=== PATIENT | male | born 1970 | race Caucasian/White ===

== ENCOUNTER 2022-08-28 21:29 | Outpatient (REF) | payer OTHER, SELFPAY ==
[2022-08-28 15:10] LABS: HGB 15.6 g/dL (13.5-17.5); MCHC 33.9 % (32.0-36.0); MCV 92 fL (80-95); Platelet Count 194 10^3/uL (130-400); RBC 5.03 10^6/uL (4.36-5.78); RDW 12.3 % (11.8-14.1); RDW-SD 40.6 fL; WBC 6.26 10^3/uL (4.4-10.8)
[2022-08-28 16:20] LABS: ALT 57 U/L (16-63); AST 27 U/L (15-37); Albumin 4.4 g/dL (3.4-5.0); Alkaline Phosphatase 63 U/L (46-116); Anion Gap 6.5 mmol/L (3-11); BUN 21 mg/dL (7-18); Bilirubin, Total 0.5 mg/dL (0.2-1.0); CO2 31.5 mmol/L (21.0-32.0); CREATININE 0.8 mg/dL (0.70-1.30); Calcium 9.3 mg/dL (8.5-10.1); Chloride 104 mmol/L (98-107); Estimated GFR 105.82 (mL/min/1.73m2); Glucose 97 mg/dL (74-106); Potassium 4.8 mmol/L (3.5-5.1); Sodium 142 mmol/L (136-145); TSH (W/Ref FT4) 0.78 uIU/mL (0.36-3.74); Total Protein 7.3 g/dL (6.4-8.2)
[2022-08-29 09:37] LABS: Lyme Ab w Rflx to Lyme Confirm Negative (Negative)
[2022-08-30 21:13] LABS: Anaplasma phagocytophilum Negative (Negative); B. miyamotoi PCR Negative (Negative); Babesia divergens/MO-1 Negative (Negative); Babesia duncani Negative (Negative); Babesia microti Negative (Negative); Ehrlichia chaffeensis Negative (Negative); Ehrlichia ewingii/canis Negative (Negative); Ehrlichia muris eauclairensis Negative (Negative)
== END 2022-08-28 21:30 | disposition home or self-care (01) ==
LOC: NCHCN 21:29
PROVIDERS: PCP Family Medicine; Visit Provider Family Medicine
DX: R03.0 Elevated blood-pressure reading, without diagnosis of hypertension (principal); M62.50 Muscle wasting and atrophy, not elsewhere classified, unspecified site
CPT/HCPCS: 80053; 85027; 87798; 84443; 86618

== ENCOUNTER 2022-10-29 16:16 | Outpatient (REF) | payer OTHER, SELFPAY ==
[2022-10-29 15:10] LABS: Hemoglobin A1C 5.3 % (<5.7)
== END 2022-10-29 16:17 | disposition home or self-care (01) ==
LOC: NCHCN 16:16
PROVIDERS: Psychiatry & Neurology Neurology; PCP Family Medicine; Visit Provider Family Medicine
DX: R73.9 Hyperglycemia, unspecified (principal)
CPT/HCPCS: 83036

== ENCOUNTER 2022-11-26 02:51 | Outpatient (CLI) | payer OTHER, SELFPAY ==
--- NOTE | 2022-11-26 06:45 | DI.MRI_ITS ---
Exam(s) MR UPPER JOINT LT WO EXAM: MR UPPER JOINT LT WO CLINICAL HISTORY: Decreased range of motion shoulder,bilat joint stiffness,lt bicep atrophy,. TECHNIQUE: Multiplanar multisequence MRI was performed. COMPARISON: None. FINDINGS: BONES: There is no fracture or contusion pattern. Os acromiale. JOINTS:The acromioclavicular joint shows mild degenerative changes. The glenohumeral joint shows a s mall amount of fluid. TENDONS: Supraspinatus: Unremarkable. Infraspinatus: Unremarkable. Subscapularis: Unremarkable. Teres Minor: Unremarkable. Biceps and [place]: Unremarkable. MUSCLES: Severe atrophy teres minor and major muscles. Severe atrophy anterior deltoid and pectorali s major muscles. Severe atrophy of the trapezius. Mild atrophy infraspinatus muscle. GLENOID LABRUM: Unremarkable on this noncontrast examination. SOFT TISSUES: Unremarkable. OTHER: Subacromial and subdeltoid bursae no significant fluid.. IMPRESSION: Severe muscular atrophy of the teres minor, teres major anterior deltoid and pectoralis major as well as trapezius muscle. DATA REPOSITORY:
--- NOTE | 2022-11-26 06:45 | DI.MRI_ITS ---
Exam(s) MR UPPER JOINT RT WO EXAM: MR UPPER JOINT RT WO CLINICAL HISTORY: R shoulder weakness,decreased range of motion,bilat joint stiffness. TECHNIQUE: Multiplanar multisequence MRI was performed. COMPARISON: None. FINDINGS: BONES: There is no fracture or contusion pattern. JOINTS:The acromioclavicular joint shows mild degenerative changes. The glenohumeral joint is normal . TENDONS: Supraspinatus: Unremarkable. Infraspinatus: Unremarkable. Subscapularis: Unremarkable. Teres Minor: Unremarkable. Biceps and [place]: Unremarkable. MUSCLES: Severe atrophy the infraspinatus, teres minor, deltoid and teres major muscles. GLENOID LABRUM: Unremarkable on this noncontrast examination. SOFT TISSUES: Unremarkable. OTHER: Subacromial and subdeltoid bursae show no significant fluid.. 8 millimeters cyst in supra scapular notch.. IMPRESSION: Smear muscle atrophy of the infraspinatus, teres major and minor and deltoid muscles. Small cyst in suprascapular notch. DATA REPOSITORY:
== END 2022-11-26 03:11 ==
PROVIDERS: PCP Family Medicine; Visit Provider Psychiatry & Neurology Neurology
DX: M25.511 Pain in right shoulder (principal); M25.512 Pain in left shoulder; M62.522 Muscle wasting and atrophy, not elsewhere classified, left upper arm; M25.611 Stiffness of right shoulder, not elsewhere classified; M25.612 Stiffness of left shoulder, not elsewhere classified; M62.521 Muscle wasting and atrophy, not elsewhere classified, right upper arm
CPT/HCPCS: 73221

== ENCOUNTER 2022-11-27 01:03 | Outpatient (CLI) | payer OTHER, SELFPAY ==
[2022-11-27] MEDS: Normal Saline Flush 10 ML SYR IVP (09:08)
[2022-11-27] MEDS: Gadoterate meglumine 20 ML VIAL IVP (09:08)
--- NOTE | 2022-11-27 09:45 | DI.MRI_ITS ---
Exam(s) MR CHEST WO/W EXAM: MR CHEST WO/W CLINICAL HISTORY: ? lt brachial plexus,atrophy muscle lt upper arm TECHNIQUE: Multiplanar multisequence MRI of the Chest was performed with brachial plexus protocol. Pre and post contrast infused. Contrast injected was 17 mL Dotarem.. CONTRAST MATERIAL: IV Contrast: 17 ML of Dotarem contrast administered. COMPARISON: CR CHEST 2 VIEWS PA,LAT from 02/14/2011 MR MR CERVICAL SPINE WO from 11/27/2022 FINDINGS: NERVE ROOTS AND TRUNKS: There are no obvious intrinsic nor extrinsic masses related to the C5-T1 roots/ trunks/ divisions. Th ere is no abnormal enhancement. SOFT TISSUES: No significant findings OSSEOUS: Mild degenerative changes noted in the left glenohumeral joint. Mild fluid noted in the left shoulder biceps tendon sheath. No bone edema evident CERVICAL: See separate cervical spine MRI report IMPRESSION: No significant findings related to the brachial left plexus. See separate report for MRI of cervical spine. DATA REPOSITORY:
--- NOTE | 2022-11-27 21:28 | DI.VRAD_ITS ---
PROCEDURE INFORMATION: Exam: MR Chest Without and With Contrast; Brachial Plexus Exam date and time: 11/27/2022 8:29 AM Age: 51 years old Clinical indication: Other: Atrophy of lt upper arm TECHNIQUE: Imaging protocol: MR chest without and with intravenous contrast. Exam focused on the brachial plexus. Total images: 656 Contrast material: DOTAREM; Contrast volume: 17 ml; Contrast route: INTRAVENOUS (IV); COMPARISON: MR CERVICAL SPINE WO 11/27/2022 8:07 AM FINDINGS: Nerves: Unremarkable visualized nerves and brachial plexus. No evidence of surrounding edema, mass or abnormal enhancement. Soft tissues: Mild posterior subcutaneous edema. No abnormal enhancement or edema within the visualized musculature. Bones/joints: Loss of the normal cervical lordosis. Mild cervical levoscoliosis. Mild disc bulging C3-C4, C4-C5 and C5-C6 mildly narrowing the anterior thecal sac without gross impingement. Small left shoulder effusion. No bony edema. Paranasal sinuses: Minimal mucosal thickening right maxillary sinus. IMPRESSION: No significant finding related to the brachial plexus. Dictated and Authenticated by: William Saldana MD. Ordering:DIMITRIOS Sarkar MD
== END 2022-11-27 01:23 ==
PROVIDERS: PCP Family Medicine; Visit Provider Psychiatry & Neurology Neurology
DX: M25.611 Stiffness of right shoulder, not elsewhere classified (principal); M25.612 Stiffness of left shoulder, not elsewhere classified; M62.522 Muscle wasting and atrophy, not elsewhere classified, left upper arm
CPT/HCPCS: 71552

== ENCOUNTER 2022-11-27 08:38 | Outpatient (CLI) | payer OTHER, SELFPAY ==
--- NOTE | 2022-11-27 | DI.MRI_ITS ---
Exam(s) MR CERVICAL SPINE WO EXAM: MR CERVICAL SPINE WO CLINICAL HISTORY: ACUTE CERVICAL RADICULOPATHY, M54.12 TECHNIQUE: Multiplanar multisequence MRI of the cervical spine was performed without intravenous con trast. COMPARISON: There are no plain films available at the time of this MRI interpretation. FINDINGS: CERVICOMEDULLARY JUNCTION: Intact with no evidence of cerebellar tonsillar ectopia. No obvious abnor mality of the odontoid process. No evidence of Chiari 1 malformation. CERVICAL SPINAL CORD: There is no abnormal signal in the cervical spinal cord and no evidence of foca l cord atrophy nor focal cord swelling. OSSEOUS:There are no cervical fractures evident. No significant osseous lesions in the cervical vert ebrae. Straightening of the cervical curvature is noted. INDIVIDUAL LEVELS: C2-3: No disc herniation nor central canal stenosis. Minimal facet degenerative changes. No foramin al stenosis. C3-4: This this level exhibits significant disc height loss. Posteriorly there is broad annular bulg ing without a dominant focal disc herniation. Broad annular bulging flattens the thecal sac. No abn ormal signal in the cord at this level. Mild central canal stenosis.Minimal degenerative change in t he left facet. No significant foraminal stenosis on the left side. On the right side there is also minimal facet degenerative change but there are right-sided Luschka joint osteophytes resulting in mi ld-moderate foraminal stenosis on the right side at this level. There are also Modic type 2 sub endp late fatty marrow changes on the right side of this disc space. C4-5: This level exhibits normal disc height. No disc herniation or central canal stenosis evident a t this level.No degenerative changes in the facet joints at this level. No Luschka joint osteophytes . No foraminal stenosis on either side at this level. C5-6: Relatively preserved disc height. There is a posterolateral right small disc herniation. This extends posteriorly 2 millimeters and is approximately 7 millimeters wide. Indents the thecal sac o n the right side at this level. The disc herniation does not continue into the exiting right neural foramen but there is mild right-sided foraminal stenosis. Mild facet joint degenerative changes. Ti ny right-sided Luschka joint osteophyte noted. On the left side at this level there is no Luschka justyn int osteophyte evident.. No foraminal stenosis on the left side. No facet arthropathy on the left s catrachita. C6-7: Mild disc space narrowing. Anterior osteophytes. Posteriorly there is mild symmetrical annula r bulging without a disc herniation evident and central canal dimensions are lower normal. There is mild bilateral foraminal stenosis at this level. Mild degenerative changes facet. C7-T1: No disc herniation nor central canal stenosis. No facet arthropathy.No foraminal stenosis. IMPRESSION: 1. There is mild central spinal canal stenosis at C3-4 and see 5-6 levels. 2. There is a small posterolateral right disc protrusion at C5-6 level. 3. Minimal facet joint degenerative changes. There is right-sided Luschka joint osteophytes at C3-4 level resulting in an element of right-sided foraminal stenosis at this level. 4. There is no abnormal signal in the cervical spinal cord. Also no evidence of focal cord swelling nor focal cord atrophy. No evidence of cerebellar tonsillar ectopia. DATA REPOSITORY:
--- OUTSIDE RECORDS SUMMARY | 2022-11-27 08:40 | XMS_ITS | Continuity of Care Document ---
:1970 Author Organization [facility] Address [address] [place] [address] Care Team Providers Name Role Phone MARILYN JUAN Primary Care Physician Encounter [facility] NBR [id number] Date(s): 11/14/22 - 11/14/22 [facility] [address] [place], [place] [address] Encounter Diagnosis Shoulder pain (Discharge Diagnosis) - 11/14/22 Discharge Disposition: Home or Self Care Attending Physician: Beka Randolph MD Allergies, Adverse Reactions, Alerts No Known Allergies Assessment and Plan Future Scheduled TestsRadiologyMRI Spine Cervical w/o Contrast 11/14/22 Functional Status 11/14/22 Other exposure to Infectious Disease None Problem List No Known Problems Vital Signs Most recent to oldest [Reference Range]: 1 Peripheral Pulse Rate [60-100 bpm] 64 bpm (11/14/22 8:10 AM) Blood Pressure [90-140/60-90 mmHg] 150/92 mmHg *HI* (11/14/22 8:10 AM) Weight 81.65 kg (11/14/22 8:10 AM) Weight Measured (lbs) 180.007 lb (11/14/22 8:10 AM) Height 170.18 cm (11/14/22 8:10 AM) Height/Length Measured (inches) 67 inch (11/14/22 8:10 AM) BSA Measured 1.96 m2 (11/14/22 8:10 AM) Body Mass Index 28.19 kg/m2 (11/14/22 8:10 AM) Social History Social History Type Response Tobacco Never tobacco user Tobacco U se:. Sex Male Physician Outpatient Note Beka Randolph MD: PERFORM Event Display: Office Clinic Note Physician Authored Date: [id number] DOTTIE MCGRATH :1970 Age:51 years Sex:Male Visit Date:11/14/2022 Primary Care Physician: MARILYN JUAN Chief Complaint BILATERAL ARM PAIN History of Present Illness New patient presents to me today for bilateral shoulder stiffness with some wasting in the upper extremities. ??Has history of??seeing a neurologist for this and is currently??continuing work-up with??MRIs upcoming.?? History of injury??seems neurologic in origin. Review of Systems Constitutional:?No??fevers,?No??chills,?No??sweats Eye:?No??recent visual problems ENT:?No??ear pain,?No??nasal congestion,?No??sore throat Respiratory:?No??shortness of breath,?No??cough Cardiovascular:?No??Chest pain,?No??palpitations,?No??syncope Gastrointestinal:?Nonausea,?No??vomiting,?No??diarrhea Genitourinary:?No??hematuria Juan/Lymph:?No??bruising tendency,?No??swollen lymph glands Endocrine:?No??excessive thirst,??No??excessive hunger Musculoskeletal:??No??back pain,??No??neck pain,??No??joint pain,??No??muscle pain,??Positive for??decreased range of motion Integumentary:?No??rash,?No??pruritus,?No??abrasions Neurologic: Alert & oriented X 4 Psychiatric:?No??anxiety,?No??depression Physical Exam Vitals & Measurements HR:??64??(Peripheral)?? BP:??150/92?? SpO2:??96%?? HT:??170.18??cm?? WT:??81.65??kg?? BMI:??28.19?? BSA:??1.96?? Well-nourished well-developed acute distress alert and oriented appearing stated age. ??Shoulder range of motion passively is full actively??difficult going overhead with some??wasting in the trapezius muscle on the left side as well as around the rotator cuff bilaterally.?? Does have some evidence of scapular winging and wasting of the biceps region as well.?? Normal elbow wrist hand range of motion normal capillary refill distally. ??No??neurologic complaints distally of numbness.?? Open wounds signs of erythema or infection. Assessment/Plan Shoulder pain??M25.519 Orders: MRI Spine Cervical w/o Contrast, 11/14/22, Routine, Reason: CERVICAL REDICULOPOTHY, No, No, PLEASE SEND TO [facility], Transport Mode: Ambulatory, Acute cervical radiculopathy Bilateral upper extremity wasting likely dealing with neurologic origin. ??States he had an EMG butwe do not have the results of that. ??This may be something related to??upper C-spine pathology could even be multiple sclerosis.?? At this time would recommend a C-spine MRI to??evaluate??spinal cord in that region??once that is done likely will be referring back to neurology for final??diagnosis andwork-up. Future Orders MRI Spine Cervical w/o Contrast, 11/14/22, Routine, Reason: CERVICAL REDICULOPOTHY, No, No, PLEASE SEND TO [facility], Transport Mode: Ambulatory, Acute cervical radiculopathy Problem List/Past Medical History Ongoing No chronic problems Historical No qualifying data Medications No active medications Allergies No Known Allergies Social History Alcohol Current, Beer- Comments: 3-4 PER DAY Electronic Cigarette/Vaping Electronic Cigarette Use: Never. 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 Tobacco Never tobacco user Tobacco Use:. Family History Dementia: Mother. Heart disease: Father. Electronically Signed on 11/14/22 09:24 AM Beka Randolph MD Patient Care team information PersonnelName: MARILYN JUAN Address: Address: [address] [address]
--- OUTSIDE RECORDS SUMMARY | 2022-11-27 08:40 | XMS_ITS | Continuity of Care Document ---
:1970 Author Organization [facility] Address [address] [place] [address] Care Team Providers Name Role Phone MARILYN JUAN Primary Care Physician Encounter [facility] NBR [id number] Date(s): 10/28/22 - 10/28/22 [facility]ulatory [facility] [address] [place] [address]- [place] Social History Social History Type Response Sex Male Patient Care team information PersonnelName: MARILYN JUAN Address: Address: [facility] [address] [place], [place] [address] [[email or web address]]
== END 2022-11-27 08:58 ==
PROVIDERS: PCP Family Medicine; Visit Provider Orthopaedic Surgery
DX: M48.02 Spinal stenosis, cervical region (principal); M50.222 Other cervical disc displacement at C5-C6 level; M47.812 Spondylosis without myelopathy or radiculopathy, cervical region
CPT/HCPCS: 72141

== ENCOUNTER 2023-08-13 08:12 | Outpatient (REF) | payer OTHER, SELFPAY ==
[2023-08-13 15:37] LABS: Abs Immature Grans 0.02 10^3/uL (0.0-0.06); Absolute Basophil Count 0.04 10^3/uL (0.0-0.2); Absolute Eosinophil Count 0.19 10^3/uL (0.0-0.7); Absolute Lymphocyte Count 1.13 10^3/uL (1.2-3.4); Absolute Neutrophil Count 4.38 10^3/uL (1.2-6.7); Basophils % 0.6; Eosinophils % 2.9; HCT 48.6 % (40.0-50.0); HGB 16.4 g/dL (13.5-17.5); Immature Grans % 0.3; Lymphocytes % 17.5; MCH 29.9 pg (27.0-33.0); MCHC 33.7 % (32.0-36.0); MCV 89 fL (80-95); MPV 9.7 fL (8.0-11.0); Monocytes % 10.8; Neutrophils % 67.9; Platelet Count 205 10^3/uL (130-400); RBC 5.48 10^6/uL (4.36-5.78); RDW 11.9 % (11.8-14.1); WBC 6.46 10^3/uL (4.4-10.8)
[2023-08-13 16:30] LABS: ALT 64 U/L (16-63); AST 33 U/L (15-37); Albumin 4.2 g/dL (3.4-5.0); Alkaline Phosphatase 67 U/L (46-116); Anion Gap 12.1 mmol/L (3-11); BUN 25 mg/dL (7-18); Bilirubin, Total 0.6 mg/dL (0.2-1.0); CO2 23.9 mmol/L (21.0-32.0); CREATININE 0.7 mg/dL (0.70-1.30); Calculated LDL 183 mg/dL (<100); Chloride 101 mmol/L (98-107); Cholesterol 254 mg/dL (<200); Glucose 92 mg/dL (74-106); HDL Cholesterol 42 mg/dL (40-60); Potassium 4.3 mmol/L (3.5-5.1); Sodium 137 mmol/L (136-145); Total Protein 7.3 g/dL (6.4-8.2); Triglyceride 147 mg/dL (<150)
[2023-08-13 17:00] LABS: Creatine Kinase 524 U/L (39-308)
== END 2023-08-13 08:13 | disposition home or self-care (01) ==
LOC: NCHCN 08:12
PROVIDERS: PCP Family Medicine; Visit Provider Family Medicine
DX: M62.50 Muscle wasting and atrophy, not elsewhere classified, unspecified site (principal); M62.81 Muscle weakness (generalized); R79.89 Other specified abnormal findings of blood chemistry
CPT/HCPCS: 80053; 80061; 82550; 85025

== ENCOUNTER 2023-09-10 08:57 | Day surgery (SDC) | payer OTHER, SELFPAY ==
--- NOTE | 2023-09-09 20:41 | W.PM.DSUDISC ---
Date of service: 09/10/23 Time of Service: 11:12 Discharge Plan Disposition Patient Disposition: Home Condition: Good Discharge Details Reason For Visit: screening colonoscopy Attending Provider: Dawson Horvath Primary Care Provider: Que Sun Home Meds and New Rx's Prescriptions: No Action No Known Home Meds bisacodyl [Dulcolax (bisacodyl)] 5 mg tablet,delayed release (DR/EC) 5 mg PO ONCE Qty: 4 0RF Rx Instructions: Take per colonoscopy instructions provided by ordering providers office polyethylene glycol 3350 17 gram/dose powder 17 g PO ONCE Qty: 238 0RF Rx Instructions: Take per colonoscopy instructions provided by ordering providers office Discharge Instructions Additional Instructions: Omar, we were able to complete your colonoscopy today without any difficulty. The quality of your prep was excellent. I did not see any signs of tumors or polyps anywhere in your large intestine. Incidentally, you do have just a few diverticula. These are small weak spots in the colon wall that typically accumulate with age. Based on the very few number here, I suspect that there would not be any problems for you. I did attach some information here regarding diverticula, diverticulosis, and general management of it. If you have any questions at all, please do not hesitate to contact me at any point. Otherwise, I recommend another colonoscopy in 10 years. 1. If tolerated, consume a soft, low fiber diet for 1-2 days. 2[address] Do not drive, drink alcohol, operate machinery, make critical decisions, or do activities that require coordination or balance for 24 hours. 3. Because air was put into your colon during the procedure, expelling air from your rectum (passing gas or farting) is normal. 4. You may not have a bowel movement for 1-3 days because of the colonoscopy prep. This is normal. 5. Go directly to the emergency room if you notice any of the following: Develop chills (warm to touch), or if you have a thermometer and your temperature is above 101 Difficulty breathing or difficultly swallowing Persistent vomiting Severe abdominal pain, other than gas cramps Severe chest pain Black, tarry stools Any bleeding ? exceeding one tablespoon 6. Call your physician if the site where your intravenous was started becomes red, swollen, painful, and warm to touch. 7. Your physician has reviewed your pre-procedure medications. Please continue to take those medications as previously ordered. You will be given specific information/education regarding any changes to your medications before leaving. Activity:: Activity as Tolerated Diet:: As Tolerated Discharge Orders Discharge Orders: Discharge Order (Routine); Ordered 09/09/23 Ordered By: Dawson Horvath DS: Diagnosis Discharge Diagnosis (1) Encounter for screening colonoscopy: Status: Acute Asessment and Plan: Negative screening colonoscopy
--- NOTE | 2023-09-09 20:42 | W.COLOREPORT ---
Date of service: 09/10/23 Time of Service: 11:13 Colonoscopy Report Date of procedure: 09/10/23 Pre-op diagnosis general: screening colonoscopy Post-op diagnosis procedure note: other (Negative screening colonoscopy) Procedure: colonoscopy Surgeon: Dawson Horvath Anesthesia Type: General:No Airway Estimated blood loss (mL): 0 Pathology: none sent Complications: None Disposition: same day Indications: Isai is a 52 year old man who needs a screening colonoscopy Prep: Miralax/Dulcolax Procedure Start Time: 10:45 Procedure End Time: 11:02 Retraction Time: 12 Findings: Very rare diverticulosis Procedure Description: After the induction of monitored anesthetic care, and with the patient in left lateral decubitus position, I began by performing an external anorectal exam.? Perineum and skin were normal, as was the anal verge.? There is a perianal skin tag consistent with fibrosed external hemorrhoid.? Next, I performed a digital rectal exam.? I did not appreciate any abnormal findings.? Next, I advanced a colonoscope into the rectal vault.? I performed retroflexion.? This appeared normal.? Using insufflation, I then advanced the colonoscope beyond the rectal folds and into the sigmoid colon before advancing towards the cecum.? The scope was noted to be in the cecum by identification of the ileocecal valve and appendiceal orifice.? I then began withdrawing the colonoscope using repeated irrigation as necessary for full evaluation of the colonic mucosa. There were just a few rare scattered diverticuli. Jeddo prep score was 3, 3, 3 from left to right. once the scope was withdrawn to the level of the rectum, great care was taken to examine portions of the rectal folds.? Finally, the scope was withdrawn and the patient was brought to the same-day surgery recovery unit as the anesthetic wore off. ?The findings and instructions were shared with the patient prior to discharge.
[2023-09-10 09:10] VITALS: BP 159/99; PULSE 68; RESP 16; TEMP 36.9; O2SAT 98
[2023-09-10] MEDS: Lactated Ringers 1,000 ML 80 ML IV (09:22)
--- NOTE | 2023-09-10 10:23 | W.ANESPRE ---
General Info Date of Service Date Performed: 09/10/23 Height: 5 ft 7 in Weight: 82.1 kg Body Mass Index (BMI): 28.3 Surgical Procedure: Operation Date: 09/10/23 10:20 Proposed Procedure Side Surgeon p Colonoscopy Dawson Horvath MD Meds Allergies and Home Medications Allergies Allergy/AdvReac Type Severity Reaction Status Date / Time No Known Allergies Allergy Verified 09/10/23 09:15 Home Medication Medication Instructions Recorded Unknown [No Known Home Meds] 10/27/22 bisacodyl 5 mg tablet,delayed 5 mg PO ONCE #4 tabs 09/03/23 release (Dulcolax (bisacodyl)) polyethylene glycol 3350 17 17 g PO ONCE #238 grams 09/03/23 gram/dose oral powder Current Visit Medications: Current Medications Generic Name Dose Route Start Last Admin Trade Name Freq PRN Reason Stop Dose Admin Hyoscyamine Sulfate 0.125 mg 09/09/23 20:43 Hyoscyamine 0.125 Mg Sl/Oral/Chew SL 10/09/23 20:42 DIRECTED PRN Ringer's Solution 1,000 mls @ 80 mls/hr 09/10/23 06:00 09/10/23 09:22 IV 10/09/23 23:59 80 mls/hr INFUSION KEYA Administration IV Miscellaneous Supplies 1 each 09/10/23 06:00 Iv Access IV 10/09/23 23:59 DIRECTED KEYA Ondansetron HCl 4 mg 09/09/23 20:43 Ondansetron 4 Mg/2 Ml Vial IVP 10/09/23 20:42 Q4H PRN PRN Nausea / Vomiting Sodium Chloride 0 ml 09/10/23 06:00 Normal Saline Flush 10 Ml Syr IV 10/09/23 23:59 PRN PRN Sodium Chloride 0 ml 09/10/23 06:00 Normal Saline 10 Ml Vial IJ 10/09/23 23:59 DIRECTED PRN Sterile Water 0 ml 09/10/23 06:00 Water,Injection,Sterile 10 Ml Vial IJ 10/09/23 23:59 DIRECTED PRN PFSH Active Problems Active Problems: Problem Status Onset Code Encounter for screening colonoscopy Z12.11 Hypersomnia G47.10 Cubital tunnel syndrome of both upper extremities G56.23 Carpal tunnel syndrome on both sides G56.03 Atrophy of muscle of left upper arm M62.522 Shoulder joint stiffness, bilateral M25.611, M25.612 Medical History Medical History (Updated 09/09/23 @ 20:41 by Dawson Horvath MD) Pain of both shoulder joints Muscle wasting Pt. states he lost the strength in his left bicep. Still pending diagnosis app[facility] [place] [facility] [place]. Elevated blood pressure reading Surgical History Surgical History No pertinent past surgical history Tobacco Smoking/Tobacco Use Status: Never Alcohol Alcohol Intake: current Alcohol intake frequency: 3 or more drinks per day Alcohol type: beer Substance Use Substance use: Never Substance use type: does not use Vital Signs and Lab Results Vital Signs Most Recent Vital Signs in EMR: Most Recent Vital Signs Temp Pulse Resp BP Pulse Ox 36.9 C 68 16 159/99 H 98 09/10/23 09:10 09/10/23 09:10 09/10/23 09:10 09/10/23 09:10 09/10/23 09:10 Lab Results Blood Type / Crossmatch: No Data to Display Complete Blood Count: White Blood Count 6.46 10^3/uL (4.4-10.8) 08/13/23 07:55 Red Blood Count 5.48 10^6/uL (4.36-5.78) 08/13/23 07:55 Hemoglobin 16.4 g/dL (13.5-17.5) 08/13/23 07:55 Hematocrit 48.6 % (40.0-50.0) 08/13/23 07:55 Platelet Count 205 10^3/uL (130-400) 08/13/23 07:55 Complete Metabolic Panel: Sodium 137 mmol/L (136-145) 08/13/23 07:55 Potassium 4.3 mmol/L (3.5-5.1) 08/13/23 07:55 Chloride 101 mmol/L (98-107) 08/13/23 07:55 Carbon Dioxide 23.9 mmol/L (21.0-32.0) 08/13/23 07:55 BUN 25 mg/dL (7-18) H 08/13/23 07:55 Creatinine 0.7 mg/dL (0.70-1.30) 08/13/23 07:55 Est GFR (CKD-EPI 2020) 109.50 (mL/min/1.73m2) 08/13/23 07:55 Calcium 9.0 mg/dL (8.5-10.1) 08/13/23 07:55 Albumin 4.2 g/dL (3.4-5.0) 08/13/23 07:55 Glucose 92 mg/dL (74-106) 08/13/23 07:55 Liver Function Panel: Alanine Aminotransferase (ALT/SGPT) 64 U/L (16-63) H 08/13/23 07:55 Aspartate Amino Transf (AST/SGOT) 33 U/L (15-37) 08/13/23 07:55 Coagulation Panel: No Data to Display Cardiac Panel: Creatine Kinase 524 U/L (39-308) H 08/13/23 Arterial Blood Gas: No Data to Display Venous Blood Gas: No Data to Display Pancreas Panel: No Data to Display Thyroid Panel: No Data to Display Infectious Disease: No Data to Display Blood Cultures: No Data to Display Toxicology Panel: No Data to Display Anesthesia Assessment and Plan Anesthesia History Personal History: No History of General Anesthesia Family History: No Family History of Anesthesia Complications Exercise Tolerance Exercise Tolerance: Metabolic Equivalents>4 Pertinent Negatives Pertinent Negatives: No Symptoms of GERD, No Major Cardiovascular Symptoms or Complaints, No Major Pulmonary Symptoms or Complaints and No History of CVA/TIA Cardiac & Pulmonary Exam Cardiac Exam: Normal S1/S2 Heart Sounds Pulmonary Exam: Clear Bilateral Breath Sounds Implantable Cardiac Device Does patient have a Pacemaker or an ICD?: No Airway Exam Known Difficult Airway: No Mallampati Class: 1 Mouth Opening: Normal (> 3cm) Thyromental Distance: Greater than 3 cm Neck Range of Motion: Full ROM Neck Circumference: Normal Teeth Condition: Normal Dentition ASA Classification ASA Score: ASA 2 Emergency Case?: No NPO Status NPO Status: NPO Clears >2 hours, Solids >8 hours Anesthesia Plan Resuscitation Status: Full Code Anesthesia Technique: General Anesthesia Airway Planned: Natural Airway Monitors Used: Standard Monitors Preoperative Comments:: Significant neurological symptoms mainly effecting bilateral upper extremities. currently being worked up with an appt at [facility] [place]. No airway symptoms, no swallowing issues, demonstrated FCROM and denied exacerbation of symptoms. Patient cleared to proceed.
[2023-09-10 10:52] VITALS: BMI 28.3
[2023-09-10 11:05] VITALS: BP 118/84; PULSE 84; RESP 15; TEMP 36.5; O2SAT 96
[2023-09-10 11:35] VITALS: BP 130/95; PULSE 67; RESP 18; TEMP 36.9; O2SAT 97
--- NOTE | 2023-09-10 11:53 | W.ANESPOSTOP ---
Postoperative Evaluation Date, Time and Location Date Performed: 09/10/23 Time Performed: 11:05 Patient Location: Day Surgery Unit Vital Signs Most Recent Imported Vital Signs: Most Recent Vital Signs Temp Pulse Resp BP Pulse Ox 36.9 C 67 18 130/95 H 97 09/10/23 11:35 09/10/23 11:35 09/10/23 11:35 09/10/23 11:35 09/10/23 11:35 Pain Score Most Recent Pain Score: Most Recent Pain Score Pain Level 0 09/10/23 11:35 Assessment Mental Status: Awake (Alert & Oriented to Patient Baseline) Airway and Respiratory Function: Patent airway with normal (patient baseline) respiratory exam Cardiovascular Function: Hemodynamically Stable Hydration Status: Adequately Hydrated Nausea & Vomiting: No Nausea or Vomiting Pain: Pt. Denies Any Pain Peripheral Nerve Block: Patient did not receive a nerve block
== END 2023-09-10 11:54 | disposition home or self-care (01) ==
LOC: SUR 08:57
PROVIDERS: PCP Family Medicine; Visit Provider Surgery
PROC: 0DJD8ZZ Inspection of Lower Intestinal Tract, Via Natural or Artificial Opening Endoscopic (ICD-10-PCS; CPT 45378; principal; 2023-09-10 10:15)
DX: Z12.11 Encounter for screening for malignant neoplasm of colon (principal); G47.10 Hypersomnia, unspecified; M62.81 Muscle weakness (generalized)
CPT/HCPCS: 45378

== ENCOUNTER 2024-08-16 10:34 | Outpatient (REF) | payer OTHER, SELFPAY ==
--- OUTSIDE RECORDS SUMMARY | 2024-08-16 10:36 | XMS_ITS | Referral Summary ---
Author Organization [facility] Address [address] [place] [address] Care Team Providers Care Medical Program Specialist Name Role Phone Que Sun MD Primary Care Provider [phone] Encounters Date Type Department Care Team Description 06/02/2024 8:[address] [facility] Neurology - [address] [address] Naveen Betts MD FSH (facioscapulohumeral muscular dystrophy) ([facility]) (Primary Dx); Bilateral carpal tunnel syndrome; Ulnar neuropathy of both upper extremities from Last 3 Months Social History Tobacco Use Types Packs/Day Years Used Date Smoking Tobacco: Never Assessed Sex and Gender Information Value Date Recorded Sex Assigned at Not on file Gender Identity Not on file Sexual Orientation Not on file Plan of Treatment Not on file Care Teams Medical Program Specialist Relationship Specialty Start Date End Date Que Sun MD [address] [place] [address] PCP - General Emergency Medicine 06/02/24
--- OUTSIDE RECORDS SUMMARY | 2024-08-16 10:36 | XMS_ITS | Clinical Summary ---
[place] [address] Care Team Providers Care Customs House Broker Name Role Phone Que Sun MD Primary Care Provider [phone] Social History Tobacco Use Types Packs/Day Years Used Date Smoking Tobacco: Never Assessed Sex and Gender Information Value Date Recorded Sex Assigned at Not on file Gender Identity Not on file Sexual Orientation Not on file Plan of Treatment Health Maintenance Due Date Last Done Comments CT Colonography 1968 Colonoscopy 1968 Colorectal Cancer Screening 1968 FIT DNA 1968 FIT 1968 Sigmoidoscopy (10 year) with FIT yearly 1968 Sigmoidoscopy 1968 HIV screen 1986 Hepatitis C Screening 1986 Lipid Screening 1986 Hepatitis B vaccine (0-59 yrs) (1) 1987 Tdap adult (Retired) 1987 Tetanus vaccine (Retired) 1987 Zoster vaccine (1 of 2) 2018 Advance Directive 2023 Covid-19 Vaccine ( - 24 season) 2024 Influenza (Flu) vaccine (1 o f 1 - Influenza standard series) 07/24/2024 Care Teams Customs House Broker Relationship Specialty Start Date End Date Que Sun MD [address] [place] [address] PCP - General Family Medicine 12/11/22
--- OUTSIDE RECORDS SUMMARY | 2024-08-16 10:36 | XMS_ITS | Encounter Summary ---
Author Organization [facility] Address [facility] [place] [address] Care Team Providers Care Web Assistant Name Role Phone Unavailable Primary Care Provider Unavailabl e Encounter Details Date Type Department Care Team (Late st Contact Info) Description 11/27/2022 12:05 AM EST Ancillary Procedure Radiology Library at [facility] [place] [phone] Que Sun MD [address] [place], [place] [id number] Social History Tobacco Use Types Packs/Day Years Used Date Smoking Tobacco: Never Assessed Sex and Gender Information Value Date Recorded Sex Assigned at Not on file Gender Identity Not on file Sexual Orientation Not on file documented as of this encounter Plan of Treatment Not on file documented as of this encounter Procedures Procedure Name Priority Date/Time Associated Diagnosis Comments FILM LIBRARY STORAGE ONLY MR CHEST Routine 11/27/2022 12:05 AM EST documented in this encounter Results * Film Library- Storage Only MR Chest (11/27/2022 12:05 AM EST) Narrative PEPITO COLE - 04/20/2024 12:02 PM EDT This exam is auto-finalizing. It's purpose is for storage only. Que Sun MD IMG FILM LIBRARY ORD ERABLES LISA Thomas documented in this encounter Visit Diagnoses Not on filedocumented in this encounter
--- OUTSIDE RECORDS SUMMARY | 2024-08-16 10:36 | XMS_ITS | Encounter Summary ---
Author Organization [facility] [place] [address] Care Team Providers Care Sole Scraper Name Role Phone Que Sun MD Primary Care Provider [phone] Encounter Details Date Type Department Care Team (Late st Contact Info) Description 04/19/2024 [place] [phone] Unknown None Social History Tobacco Use Types Packs/Day Years Used Date Smoking Tobacco: Never Assessed Sex and Gender Information Value Date Recorded Sex Assigned at Not on file Gender Identity Not on file Sexual Orientation Not on file documented as of this encounter Miscellaneous Notes * Telephone Encounter - John Mcdonald - 04/19/2024 4:56 PM EDT Patient calling in: Caller: patient If not PT/Relation to PT: self Best number to reach caller: [phone] Reason for the Call: schedule appointment To check on the status of their referral: If not, what is the reason for their call: schedule appointment Previous Neurology Information Questions: Previous Neurology Information Questions: Has the patient seen another Neurologist: Yes If yes, when and where: 2021, [facility] Has the patient had any imaging done: Yes If yes, when and where: 2022, MRI, [facility] documented in this encounter Plan of Treatment Not on file documented as of this encounter Visit Diagnoses Not on filedocumented in this encounter Care Teams Sole Scraper Relationship Specialty Start Date End Date Que Sun MD [address] [place] [address] PCP - General Family Medicine 12/11/22 documented as of this encounter
--- OUTSIDE RECORDS SUMMARY | 2024-08-16 10:36 | XMS_ITS | Encounter Summary ---
Author Organization [facility] Address [address] [place] [address] Care Team Providers Care Supervisor Warping Department Name Role Phone Unavailable Primary Care Provider Unavailabl e Reason for Referral * (Routine/Next Available) - Receiving Office to Obtain Authorization Specialty Diagnoses / Procedures Referred By Contac t Referred To Contact Procedures MR OUTSIDE IMAGES CHEST Imaging, External Referral ID Status Reason Start Date Expiration Date Visits Requested Visits Authorized [id number] Receiving Office to Obtain Authorization 04/20/2024 1 1 Reason for Visit * (Routine/Next Available) - Receiving Office to Obtain Authorization Specialty Diagnoses / Procedures Referred By Contac t Referred To Contact Procedures MR OUTSIDE IMAGES CHEST Imaging, External Referral ID Status Reason Start Date Expiration Date Visits Requested Visits Authorized [id number] Receiving Office to Obtain Authorization 04/20/2024 1 1 Encounter Details Date Type Department Care Team (Latest Contact Info) Description 11/27/2022 - 11/27/2022 0:04 EST Hospital Encounter [facility] Secondary Reads [place] Discharge Disposition: Home or Self Care Social History Tobacco Use Types Packs/Day Years Used Date Smoking Tobacco: Never Assessed Sex and Gender Information Value Date Recorded Sex Assigned at Not on file Gender Identity Not on file Sexual Orientation Not on file documented as of this encounter Discharge Disposition Disposition Code Departure Means Destination Home or Self Care documented in this encounter Plan of Treatment Not on file documented as of this encounter Procedures Procedure Name Priority Date/Time Associated Diagnosis Comments MR OUTSIDE IMAGES CHEST Routine 11/27/2022 12:16 EST documented in this encounter Results * MR OUTSIDE IMAGES CHEST (11/27/2022 12:16 EST) Narrative 04/20/2024 12:16 EDT This is a non-reportable exam. External Imaging IMG OTHER IMAGING OR DERABLES documented in this encounter Visit Diagnoses Not on filedocumented in this encounter
--- OUTSIDE RECORDS SUMMARY | 2024-08-16 10:36 | XMS_ITS | Encounter Summary ---
Author Organization [facility] Address [address] [place] [address] Care Team Providers Care Small Craft Operator Name Role Phone Que Sun MD Primary Care Provider [phone] Reason for Visit * Reason Comments New Patient Visit * Referral (Routine) - Receiving Office to Obtain Authorization Specialty Diagnoses / Procedures Referred By Emi bryant Referred To Contact Neurology Diagnoses Muscle wasting and atrophy, not elsewhere classified, left upper arm Rosalinda Sevilla MD [address] [address] Naveen Betts MD [address] [place] [address] Referral ID Status Reason Start Date Expiration Date Visits Requested Visits Authorized [id number] Receiving Office to Obtain Authorization 1 1 Encounter Details Date Type Department Care Team (Late st Contact Info) Description 06/02/2024 8:00 EDT Procedure visit [facility] Neurology - [place] [address] [place] [address] Naveen Betts MD [address] [place] [address] FSH (facioscapulohumeral muscular dystrophy) ([facility]) (Primary Dx); Bilateral carpal tunnel syndrome; Ulnar neuropathy of both upper extremities Social History Tobacco Use Types Packs/Day Years Used Date Smoking Tobacco: Never Assessed Sex and Gender Information Value Date Recorded Sex Assigned at Not on file Gender Identity Not on file Sexual Orientation Not on file documented as of this encounter Progress Notes * Naveen Betts MD - 06/02/2024 0800 EDT Images from the original note were not included. Department of Neurological Sciences Neurology Clinic Initial Visit Note Chief complaint: Progressive weakness History of Present Illness: Isai Barahona is a 53 y.o. male who presents to clinic for a consultation requested by Rosalinda Sevilla MD regarding progressive weakness. The records from the referring provider were reviewed as part of the visit and are summarized below. Patient stated that he has a longstanding issues with weakness of the right shoulder, where he has difficulty raising his arm above the shoulder for approximately 10 years. He attributed that to potential injury doing bench presses down 10 years ago. However, he did not seek any medical evaluation.Over period of time he has ability to move his arm above the shoulder has been getting progressively worse. He denies any associated neck pain, radiation to the right upper extremity or significant right shoulder pain. Patient has mild difficulty with the left shoulder as well but not as significant compared to the right. In addition, for the past 5 to 6 years at least, patient has noticed that his scapula sticks out upon stretching of the arms bilaterally. 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 He felt that his left leg could be slightly worse than right. There wasno back pain or numbness or tingling. There was no fluctuation of symptoms. At about the same time, patient noticed that his left biceps is weak and also smaller. This prompted PCP and then subsequently neurological consultation. He also complains of intermittent numbness of his hand while riding a bicycle lawn at night. Those symptoms are worse on the left than the right. His neurological workup included EMG nerve conduction studies which showed left more than right carpal tunnel syndrome, left moderate to severe right mild to moderate and mild bilateral ulnar neuropathies. Left 19 m/s slowing, right 9 m/s slowing. EMG of the left arm showed some chronic mixed neuropathic and myopathic changes. Additional evaluation has included CBC, TSH, Lyme testing. His CK was 524 (normal up to 308. AST T was normal while ALT was elevated at 64 (normal up to 63. His hemoglobin A1c and TSH were normal. Genetic testing through [employer] was negative. MRI of the right shoulder shows severe atrophy of the teres minor teres major anterior deltoid, pectoralis major and trapezius muscles mild degenerative changes in the joints were identified. There was also atrophy of the infraspinatus muscle. MRI of the cervical spine showed mild central canal stenosis C3-4 and C5-6 without any abnormal cord signal. MRIof the brachial plexus was unremarkable. Review of symptoms is significant for slight fatigue upon wakening. Patient is single so therefore is not sure whether he snores or not. He denies any excessive fatigue or sleepiness through the day. He denies any ongoing headaches, nausea, vomiting, diplopia, dysphagia, dysarthria, fever or night sweats. Denies any bowel or bladder symptoms. There is no family history of any weakness or neuromuscular disorders. 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 He Family history: Both parents are . Father of [place] and also stroke. Mother has stroke. Patient has 3 brothers and 4 sisters. 1 brother of diabetes complication and 1 sister of heart disease. Other siblings and family members are healthy. He does not have children. He is single Review of systems stems: A 13-system review of systems was obtained, which was negative except as mentioned in body of report. General Exam: Vital signs: Pulse 80/min respiration 12 In general the patient is pleasant and in no acute distress. Extremity examination shows no bruising, rash or edema. HEENT: Normocephalic atraumatic. Neck: Supple no JVD no lymph node. Cardiovascular: S1-S2 no murmurs or rub. Lungs clear to auscultation. Abdomen soft no hepatosplenomegaly. Neurologic Exam: A complete neurological exam was performed. Patient is alert and fully oriented. Mood and affect are appropriate. Attention span is normal. Fund of knowledge is full. Both recent and remote memory are intact. Speech and language function are normal. There is no neglect or apraxia. Cranial nerves: Pupils are equal, round and reactive to light and accomodation. Visual [place] are full to confrontation. Extraocular movements are full without nystagmus. Face activates symmetrically and sensation is intact in V1-V3. Speech is clear without dysarthria. Hearing is intact to finger rub. Tongue protrudes midline. Uvula and palate elevate in the midline. Shoulder shrug and SCMs are full strength and symmetric. Motor Exam: Patient has evidence of atrophy of the pectoralis muscles bilaterally, periscapular areas and left biceps. Evidence of bilateral right more than left scapular winging were identified. In the upper extremities distal hand muscle were normal, except for right FDI of plus 4 out of 5. Bilateral triceps were 5 out of 5. Right biceps 4 out of 5 left 3 out of 5. Bilateral deltoid minus 4out of 5. Patient has bilateral medial scapular winging. Abdominal weakness is suggested by positive red lake sign. In the lower extremities, he has mild left more than right proximal hip girdle weakness in the range of minus 5 out of 5. DTRs: 2+ and symmetric. Toes are down going to plantar stimulation. Sensation: Intact light touch, pinprick, temperature and vibration throughout. Coordination: Ahqzaq-xf-[id number] and lvyg-mr-[id number] are intact. Rapid alternating movements are fast and smooth. Gait: Patient has a mild waddling and lordotic gait Assessment and Plan: 1. 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 Bilateral left more than right carpal tunnel syndrome. Left moderately severe right mild to moderate. 3. Bilateral ulnar neuropathies across the elbow (left 19 m/s slowing, right 9 m/s slowing). I discussed my impression with the patient. I told patient that I agree with Dr. 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 This diagnosis issupported by progressive asymmetric involvement manifesting as bilateral right more than left medial scapular winging, bilateral deltoid and periscapular atrophy and weakness, asymmetric left biceps atrophy and weakness with forearm sparing (Popeyes sign). In addition, patient also has lower abdominal muscles weakness manifesting as positive Beevor's sign. Truncal weakness and hip girdle weaknessis manifesting as lordotic and waddling gait. Patient does not have any significant facial weakness, however that does not exclude this diagnosis. Similarly, negative family history does not exclude this diagnosis. My plans are as follows: 1. Will obtain genetic testing for FSH 1 and 2. 2. Once confirmed, he will be registered and referred to our muscular dystrophy clinic. 3. We discussed the rare systemic complications seen with FSH including hearing loss and retinal involvement (Coat's syndrome) and might require detailed ophthalmological evaluation. 4. We also discussed potential scapular fixation surgery. With manual fixation of scapula performedin the clinic, his ability to raise his arms above the shoulder improved significantly left more than right. Patient wants to think about this procedure. 5. While we are waiting for the genetic confirmation, patient will benefit from local PT/OT evaluation. 6. He also have bilateral carpal tunnel syndrome and ulnar neuropathies, which are currently treated conservatively. Patient has noticed some symptomatic improvement and will continue with them for now Naveen Betts MD Professor of Neurological Sciences ABPN Board Certified Neurology, Neuromuscular and Clinical Neurophysiology documented in this encounter Plan of Treatment Not on file documented as of this encounter Visit Diagnoses Diagnosis FSH (facioscapulohumeral muscular dystrophy) ([facility]-CMS)- Primary Hereditary progressive muscular dystrophy Bilateral carpal tunnel syndrome Carpal tunnel syndrome Ulnar neuropathy of both upper extremities Lesion of ulnar nerve documented in this encounter Care Teams Small Craft Operator Relationship Specialty Start Date End Date Que Sun MD [address] [facility] [address] [place] [id number] PCP - General Emergency Medicine 06/02/24 documented as of this encounter
--- OUTSIDE RECORDS SUMMARY | 2024-08-16 10:36 | XMS_ITS | Encounter Summary ---
[place] [address] Care Team Providers Care Corrosion Prevention Metal Sprayer Name Role Phone Que Sun MD Primary Care Provider [phone] Reason for Referral * Consultation (Routine) - Authorized Specialty Diagnoses / Procedures Referred By Contac t Referred To Contact Neurology Diagnoses Atrophy of muscle of left upper arm Muscular atrophy, unspecified site Rosalinda Ley MD [facility] [address] [place] [address] [facility] [address] [place] [phone] Referral ID Status Reason Start Date Expiration Date Visits Requested Visits Authorized [id number] Authorized Consult, Test & Treat PCP Updated and/or Approved 04/29/2024 04/29/2025 6 6 Encounter Details Date Type Department Care Team (Late st Contact Info) Description 04/29/2024 Transcribe Orders eDH Incoming Referrals [phone] Rosalinda Ley MD [facility] [address] [place], [place] [address] Atrophy of muscle of left upper arm; Muscular atrophy, unspecified site Social History Tobacco Use Types Packs/Day Years Used Date Smoking Tobacco: Never Assessed Sex and Gender Information Value Date Recorded Sex Assigned at Not on file Gender Identity Not on file Sexual Orientation Not on file documented as of this encounter Plan of Treatment Scheduled Referrals Name Type Priority Associated Diagnoses Orde r Schedule Referral to Neurology Outpatient Referral Routine Atrophy of muscle of left upper arm Muscular atrophy, unspecified site Ordered: 04/29/2024 documented as of this encounter Visit Diagnoses Diagnosis Atrophy of muscle of left upper arm Muscular atrophy, unspecified site documented in this encounter Care Teams Corrosion Prevention Metal Sprayer Relationship Specialty Start Date End Date Que Sun MD [address] [place] [address] PCP - General Family Medicine 12/11/22 documented as of this encounter
--- OUTSIDE RECORDS SUMMARY | 2024-08-16 10:36 | XMS_ITS | Encounter Summary ---
Author Organization [facility] Address [address] [place] [address] Care Team Providers Care Internet Marketing Director Name Role Phone Unavailable Primary Care Provider Unavailabl e Reason for Referral * (Routine/Next Available) - Receiving Office to Obtain Authorization Specialty Diagnoses / Procedures Referred By Contac t Referred To Contact Procedures MR OUTSIDE IMAGES CERVICAL SPINE Imaging, External Referral ID Status Reason Start Date Expiration Date Visits Requested Visits Authorized [id number] Receiving Office to Obtain Authorization 04/20/2024 1 1 Reason for Visit * (Routine/Next Available) - Receiving Office to Obtain Authorization Specialty Diagnoses / Procedures Referred By Contac t Referred To Contact Procedures MR OUTSIDE IMAGES CERVICAL SPINE Imaging, External Referral ID Status Reason Start Date Expiration Date Visits Requested Visits Authorized [id number] Receiving Office to Obtain Authorization 04/20/2024 1 1 Encounter Details Date Type Department Care Team (Latest Contact Info) Description 11/27/2022 0:05 EST - 11/27/2022 23:59 EST Hospital Encounter [facility] Secondary Reads [place] Discharge Disposition: Home or [...] Date/Time Associated Diagnosis Comments MR OUTSIDE IMAGES CERVICAL SPINE Routine 11/27/2022 12:15 EST documented in this encounter Results * MR OUTSIDE IMAGES CERVICAL SPINE (11/27/2022 12:15 EST) Narrative 04/20/2024 12:15 EDT This is a non-reportable exam. External Imaging IMG OTHER IMAGING OR DERABLES documented in this encounter Visit Diagnoses Not on filedocumented in this encounter
--- OUTSIDE RECORDS SUMMARY | 2024-08-16 10:36 | XMS_ITS | Encounter Summary ---
Author Organization [facility] Address [facility] [place] [address] Care Team Providers Care Computer Systems Architect Name Role Phone Unavailable Primary Care Provider Unavailabl e Encounter Details Date Type Department Care Team (Late st Contact Info) Description 11/27/2022 Ancillary Procedure Radiology Library at [facility] [place] [phone] Que Sun MD [address] [place], [place] [id number] Social History Tobacco Use Types Packs/Day Years [...] Diagnosis Comments FILM LIBRARY STORAGE ONLY MR SPINE Routine 11/27/2022 12:00 AM EST documented in this encounter Results * Film Library- Storage Only MR Spine (11/27/2022 12:00 AM EST) Narrative DOUGLAS - 04/20/2024 12:02 PM EDT This exam is auto-finalizing. It's purpose is for storage only. Que Sun MD IMG FILM LIBRARY ORD ERABLES [facility] [place] documented in this encounter Visit Diagnoses Not on filedocumented in this encounter
--- OUTSIDE RECORDS SUMMARY | 2024-08-16 10:36 | XMS_ITS | Encounter Summary ---
Author Organization [facility] Address [facility] [place] [address] Care Team Providers Care Sail Finisher Machine Name Role Phone Unavailable Primary Care Provider Unavailabl e Encounter Details Date Type Department Care Team (Late st Contact Info) Description 11/26/2022 12:05 AM EST Ancillary Procedure Radiology Library at [facility] L[place] Orozco [phone] Que Sun MD [address] [place], [place] [phone] Social History Tobacco Use Types Packs/Day Years [...] Diagnosis Comments FILM LIBRARY STORAGE ONLY MR UPPER EXTREMITY Routine 11/26/2022 12:05 AM EST documented in this encounter Results * Film Library- Storage Only MR Upper Extremity (11/26/2022 12:05 AM EST) Narrative DOUGLAS - 04/20/2024 12:00 PM EDT This exam is auto-finalizing. It's purpose is for storage only. Que Sun MD IMG FILM LIBRARY ORD ERABLES [place] documented in this encounter Visit Diagnoses Not on filedocumented in this encounter
--- OUTSIDE RECORDS SUMMARY | 2024-08-16 10:36 | XMS_ITS | Encounter Summary ---
Author Organization [facility] Address [facility] [place] [address] Care Team Providers Care Greenhouse Assistant Name Role Phone Unavailable Primary Care Provider Unavailabl e Encounter Details Date Type Department Care Team (Late st Contact Info) Description 11/26/2022 Ancillary Procedure Radiology Library at [facility] L[place] Orozco [phone] Que Sun MD [address] [place], [place] [phone] Social History Tobacco Use Types Packs/Day Years [...] STORAGE ONLY MR UPPER EXTREMITY Routine 11/26/2022 12:00 AM EST documented in this encounter Results * Film Library- Storage Only MR Upper Extremity (11/26/2022 12:00 AM EST) Narrative DOUGLAS - 04/20/2024 12:00 PM EDT This exam is auto-finalizing. It's purpose is for storage only. Que Sun MD IMG FILM LIBRARY ORD ERABLES [place], [place] documented in this encounter Visit Diagnoses Not on filedocumented in this encounter
--- OUTSIDE RECORDS SUMMARY | 2024-08-16 10:36 | XMS_ITS | Clinical Summary ---
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); Bilateral carpal tunnel syndrome; Ulnar neuropathy of both upper extremities from Last 3 Months Social History Tobacco Use Types Packs/Day Years Used Date Smoking Tobacco: Never Assessed Sex and Gender Information Value Date Recorded Sex Assigned at Not on file Gender Identity Not on file Sexual Orientation Not on file Plan of Treatment Health Maintenance Due Date Last Done Comments Hepatitis C Screen 1970 Hepatitis B Vaccine (1 of 3 - 19+ 3-dose series) 12/26 COVID-19 Vaccine ( season) 2024 Care Teams Residential Living Assistant Relationship Specialty Start Date End Date Que Sun MD [address] [facility] [address] [place] [address] PCP - General Emergency Medicine 06/02/24
--- OUTSIDE RECORDS SUMMARY | 2024-08-16 10:36 | XMS_ITS | Encounter Summary ---
[place] [address] Care Team Providers Care Cement Or Concrete Finishing Supervisor Name Role Phone Que Sun MD Primary Care Provider [phone] Reason for Referral * Consultation (Routine) - Closed Specialty Diagnoses / Procedures Referred By Contac t Referred To Contact Neurology Diagnoses Muscle wasting and atrophy, not elsewhere classified, left upper arm Que Sun MD [address] [place] [address] [facility] Neurology [address] [place] [phone] Referral ID Status Reason Start Date Expiration Date V isits Requested Visits Authorized [id number] Closed Consult, Test & Treat PCP Updated and/or Approved 12/11/2022 12/11/2023 6 6 Encounter Details Date Type Department Care Team (Latest Contact Info) Description 12/11/2022 Transcribe Orders eD Incoming Referrals [phone] Que Sun MD [address] [place] [address] Muscle wasting and atrophy, not elsewhere classified, left upper arm Social History Tobacco Use Types Packs/Day Years Used Date Smoking Tobacco: Never Assessed Sex and Gender Information Value Date Recorded Sex Assigned at Not on file Gender Identity Not on file Sexual Orientation Not on file documented as of this encounter Plan of Treatment Scheduled Referrals Name Type Priority Associated Diagnoses Orde r Schedule Referral to Neurology Outpatient Referral Routine Muscle wasting and atrophy, not elsewhere classified, left upper arm Ordered: 12/11/2022 documented as of this encounter Visit Diagnoses Diagnosis Muscle wasting and atrophy, not elsewhere classified, left upper arm documented in this encounter Care Teams Cement Or Concrete Finishing Supervisor Relationship Specialty Start Date End Date Que Sun MD [address] [place] [address] PCP - General Family Medicine 12/11/22 documented as of this encounter
--- OUTSIDE RECORDS SUMMARY | 2024-08-16 10:37 | XMS_ITS | Encounter Summary ---
Author Organization [facility] Address [address] [place] [address] Care Team Providers Care Government Relations Analyst Name Role Phone Unavailable Primary Care Provider Unavailabl e Reason for Referral * (Routine/Next Available) - Receiving Office to Obtain Authorization Specialty Diagnoses / Procedures Referred By Contac t Referred To Contact Procedures MR OUTSIDE IMAGES LEFT UPPER EXTREMITY Imaging, External Referral ID Status Reason Start Date Expiration Date Visits Requested Visits Authorized [id number] Receiving Office to Obtain Authorization 04/20/2024 1 1 Reason for Visit * (Routine/Next Available) - Receiving Office to Obtain Authorization Specialty Diagnoses / Procedures Referred By Contac t Referred To Contact Procedures MR OUTSIDE IMAGES LEFT UPPER EXTREMITY Imaging, External Referral ID Status Reason Start Date Expiration Date Visits Requested Visits Authorized [id number] Receiving Office to Obtain Authorization 04/20/2024 1 1 Encounter Details Date Type Department Care Team (Latest Contact Info) Description 11/26/2022 0:05 EST - 11/26/2022 23:59 EST Hospital Encounter [facility] Secondary Reads [place] Discharge Disposition: Home [...] Date/Time Associated Diagnosis Comments MR OUTSIDE IMAGES LEFT UPPER EXTREMITY Routine 11/26/2022 12:14 EST documented in this encounter Results * MR OUTSIDE IMAGES LEFT UPPER EXTREMITY (11/26/2022 12:14 EST) Narrative 04/20/2024 12:14 EDT This is a non-reportable exam. External Imaging IMG OTHER IMAGING OR DERABLES documented in this encounter Visit Diagnoses Not on filedocumented in this encounter
--- OUTSIDE RECORDS SUMMARY | 2024-08-16 10:37 | XMS_ITS | Encounter Summary ---
Author Organization [facility] Address [address] [place] [address] Care Team Providers Care Finishing Machine Operator Name Role Phone Unavailable Primary Care Provider Unavailabl e Reason for Referral * (Routine/Next Available) - Receiving Office to Obtain Authorization Specialty Diagnoses / Procedures Referred By Contac t Referred To Contact Procedures MR OUTSIDE IMAGES RIGHT UPPER EXTREMITY Imaging, External Referral ID Status Reason Start Date Expiration Date Visits Requested Visits Authorized [id number] Receiving Office to Obtain Authorization 04/20/2024 1 1 Reason for Visit * (Routine/Next Available) - Receiving Office to Obtain Authorization Specialty Diagnoses / Procedures Referred By Contac t Referred To Contact Procedures MR OUTSIDE IMAGES RIGHT UPPER EXTREMITY Imaging, External Referral ID Status Reason Start Date Expiration Date Visits Requested Visits Authorized [id number] Receiving Office to Obtain Authorization 04/20/2024 1 1 Encounter Details Date Type Department Care Team (Latest Contact Info) Description 11/26/2022 - 11/26/2022 0:04 EST Hospital Encounter [facility] Secondary Reads [place] Discharge Disposition: Home or [...] Date/Time Associated Diagnosis Comments MR OUTSIDE IMAGES RIGHT UPPER EXTREMITY Routine 11/26/2022 12:14 EST documented in this encounter Results * MR OUTSIDE IMAGES RIGHT UPPER EXTREMITY (11/26/2022 12:14 EST) Narrative 04/20/2024 12:14 EDT This is a non-reportable exam. External Imaging IMG OTHER IMAGING OR DERABLES documented in this encounter Visit Diagnoses Not on filedocumented in this encounter
--- OUTSIDE RECORDS SUMMARY | 2024-08-16 10:37 | XMS_ITS | Encounter Summary ---
Author Organization [facility] Address [address] [place] [address] Care Team Providers Care Leadership Development Manager Name Role Phone Unknown, Provider Primary Care Provider [phone] Que Sun MD Primary Care Provider [phone] Encounter Details Date Type Department Care Team (Late st Contact Info) Description 08/28/2022 Lab Requisition [facility] Pathology & Laboratory Medicine - [address] [address] Outr Resulting Lab, Provider Social History Tobacco Use Types Packs/Day Years Used Date Smoking Tobacco: Never Assessed Sex and Gender Information Value Date Recorded Sex Assigned at Not on file Gender Identity Not on file Sexual Orientation Not on file documented as of this encounter Plan of Treatment Not on file documented as of this encounter Procedures Procedure Name Priority Date/Time Associated Diagnosis Comments LYME AB Routine 08/28/2022 7:55 EDT documented in this encounter Results * LYME AB (08/28/2022 7:55 EDT) Lyme Ab Negative Negative 08/29/2022 9:32 EDT [facility] Blood VENOUS BLOOD / Unknown 08/28/2022 7:55 EDT 08/28/2022 21:28 EDT Provider Outr Resulting Lab IMMUNOLOGY A ND SEROLOGY ORDERABLES [facility] [address] [place] [address] documented in this encounter Visit Diagnoses Not on filedocumented in this encounter Care Teams Leadership Development Manager Relationship Specialty Start Date End Date Unknown, Provider, PCP - General 6/27/24 7/10/24 Que Sun MD [address] [facility] [address] [place] [address] PCP - General Emergency Medicine 06/02/24 documented as of this encounter
--- OUTSIDE RECORDS SUMMARY | 2024-08-16 10:37 | XMS_ITS | Continuity of Care Document ---
Author Organization [facility] Address [address] [place] [address] Care Team Providers Care Migrant Leader Name Role Phone MARILYN JUAN Primary Care Physician Encounter [facility] [id number] Date(s): 12/19/22 - 12/19/22 [facility] [address] [place] [address] [place] Discharge Disposition: Home or Self Care Attending Physician: Beka Randolph MD Allergies, Adverse Reactions, Alerts No Known Allergies Assessment and Plan Future Scheduled Tests Radiology* MRI Spine Cervical w/o Contrast 11/14/22 Problem List No Known Problems Social History Social History Type Response Tobacco Never tobacco user T obacco Use:. Sex Male Physician Outpatient Note * Beka Randolph MD: PERFORM Event Display: Office Clinic Note Physician Authored Date: [id number] DOTTIE MCGRATH :1970 Age:51 years Sex:Male Visit Date:12/19/2022 Primary Care Physician: MARILYN JUAN History of Present Illness Called patient on the phone this a.m. after reviewing spine and shoulder MRIs. ??Spine notes a little bit of degeneration but no widely??present??neural compression. ??In fact very little neural compression at all.?? Shoulder MRI was overall clean did note several of muscles including deltoid teresmajor minor and pectoralis to have severe muscle atrophy.?? 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 He has a referral to a musculoskeletal??specialist at [facility] and I recommended that he that would be hisnext step??and he would not necessarily need to come see me today to hear that. ??So he is going??did not come in today and wait for that appointment can be made and follow-up with us again as needed. Problem List/Past Medical History Ongoing No chronic problems Historical No qualifying data Medications No active medications Allergies No Known Allergies Social History Alcohol Current, Beer- Comments: 3-4 PER DAY Electronic Cigarette/Vaping Electronic Cigarette Use: Never. 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 Tobacco Never tobacco user Tobacco Use:. Family History Dementia: Mother. Heart disease: Father. Electronically Signed on 12/19/22 07:45 AM Beka Randolph MD Patient Care team information Personnel Name: MARILYN JUAN Address: Address: [address] [address]
[2024-08-16 15:05] LABS: LDL CHOLESTEROL 180 mg/dL (<100)
== END 2024-08-16 10:35 | disposition home or self-care (01) ==
LOC: NCHCN 10:34
PROVIDERS: PCP Family Medicine; Visit Provider Family Medicine
DX: E78.5 Hyperlipidemia, unspecified (principal)
CPT/HCPCS: 83721

== ENCOUNTER 2024-11-08 10:22 | Outpatient (REF) | payer OTHER, SELFPAY ==
--- OUTSIDE RECORDS SUMMARY | 2024-11-08 10:23 | XMS_ITS | Encounter Summary ---
[place] [address] Care Team Providers Care Thermodynamicist Name Role Phone Que Sun MD Primary Care Provider Reason for Referral * Consultation (Routine) - Closed Specialty Diagnoses / Procedures Referred By Contac t Referred To Contact Neurology Diagnoses Muscle wasting and atrophy, not elsewhere classified, left upper arm Que Sun MD [address] [place] [address] [facility] [address] [place] [phone] Referral ID Status Reason Start Date Expiration Date V isits Requested Visits Authorized [id number] Closed Consult, Test & Treat PCP Updated and/or Approved 12/11/2022 12/11/2023 6 6 Encounter Details Date Type Department Care Team (Latest Contact Info) Description 12/11/2022 Transcribe Orders eD Incoming Referrals [phone] Que Sun MD [address] [place] [address] Muscle wasting and atrophy, not elsewhere [...] arm documented in this encounter Care Teams Thermodynamicist Relationship Specialty Start Date End Date Que Sun MD [address] [place] [address] PCP - General Family Medicine 12/11/22 documented as of this encounter
--- OUTSIDE RECORDS SUMMARY | 2024-11-08 10:23 | XMS_ITS | Encounter Summary ---
Author Organization [facility] [place] [address] Care Team Providers Care Recovery Assistant Name Role Phone Que Sun MD Primary Care Provider [phone] Encounter Details Date Type Department Care Team (Late st Contact Info) Description 04/19/2024 [place] [phone] Unknown None Social History Tobacco Use Types [...] PT: self Best number to reach caller: [phone] Reason for the Call: schedule appointment To [...] on filedocumented in this encounter Care Teams Recovery Assistant Relationship Specialty Start Date End Date Que Sun MD [address] [place] [address] PCP - General Family Medicine 12/11/22 documented as of this encounter
--- OUTSIDE RECORDS SUMMARY | 2024-11-08 10:23 | XMS_ITS | Encounter Summary ---
Author Organization [facility] Address [facility] [place] [address] Care Team Providers Care Infrastructure Developer Name Role Phone Unavailable Primary Care Provider Unavailabl e Encounter Details Date Type Department Care Team (Late st Contact Info) Description 11/26/2022 12:05 AM EST Ancillary Procedure Radiology Library at [facility] LISA Orozco [phone] Que Sun MD [address] [place], [place] [phone] Social History Tobacco Use Types Packs/Day Years [...] IMG FILM LIBRARY ORD ERABLES DOUGLAS [place] documented in this encounter Visit Diagnoses Not on filedocumented in this encounter
--- OUTSIDE RECORDS SUMMARY | 2024-11-08 10:23 | XMS_ITS | Encounter Summary ---
[place] [address] Care Team Providers Care Improvement Leader Name Role Phone Que Sun MD Primary Care Provider [phone] Reason for Referral * Consultation (Routine) - Closed Specialty Diagnoses / Procedures Referred By Contac t Referred To Contact Neurology Diagnoses Atrophy of muscle of left upper arm Muscular atrophy, unspecified site Rosalinda Ley MD [facility] [address] [place] [address] [facility] Neurology [address] [place] [phone] Referral ID Status Reason Start Date Expiration Date V isits Requested Visits Authorized [id number] Closed Consult, Test & Treat PCP Updated and/or Approved 04/29/2024 04/29/2025 6 6 Encounter Details Date Type Department Care Team (Late st Contact Info) Description 04/29/2024 Transcribe Orders eDH Incoming Referrals [phone] Rosalinda Ley MD [facility] [address] [place], [place] [address] Atrophy of muscle of left upper arm; [...] site documented in this encounter Care Teams Improvement Leader Relationship Specialty Start Date End Date Que Sun MD [address] [place] [address] PCP - General Family Medicine 12/11/22 documented as of this encounter
--- OUTSIDE RECORDS SUMMARY | 2024-11-08 10:23 | XMS_ITS | Referral Summary ---
Author Organization [facility] Address [address] [place] [address] Care Team Providers Care Highway Commissioner Name Role Phone Que Sun MD Primary Care Provider [phone] Encounters Date Type Department Care Team Description 09/22/2024 8:00 EDT Office Visit [facility] Neurology - [address] [address] Naveen Betts MD FSH (facioscapulohumeral muscular dystrophy) ([facility]) (Primary Dx); Bilateral carpal tunnel syndrome; Ulnar neuropathy of both upper extremities from Last 3 Months Medications No known medications Social History Tobacco Use Types Packs/Day Years Used Date Smoking Tobacco: Never Assessed Sex and Gender Information Value Date Recorded Sex Assigned at Not on file Legal Sex Male 16:37 EDT Gender Identity Male 09/22/2024 7:48 EDT Sexual Orientation Not on file Plan of Treatment Not on file Insurance [facility] Care Teams Highway Commissioner Relationship Specialty Start Date End Date Que Sun MD [address] [place] [address] PCP - General Emergency Medicine 06/02/24
--- OUTSIDE RECORDS SUMMARY | 2024-11-08 10:23 | XMS_ITS | Encounter Summary ---
Author Organization [facility] Address [facility] [place] [address] Care Team Providers Care General Warehouse Associate Name Role Phone Unavailable Primary Care Provider Unavailabl e Encounter Details Date Type Department Care Team (Late st Contact Info) Description 11/27/2022 Ancillary Procedure Radiology Library at [facility] LISA Orozco [phone] Que Sun MD [address] [place], [place] [phone] Social History Tobacco Use Types Packs/Day Years [...] Sun MD IMG FILM LIBRARY ORD ERABLES [facility] [place] documented in this encounter Visit Diagnoses Not on filedocumented in this encounter
--- OUTSIDE RECORDS SUMMARY | 2024-11-08 10:23 | XMS_ITS | Encounter Summary ---
Author Organization [facility] Address [facility] [place] lex[place] [address] Care Team Providers Care Fax Machine Operator Name Role Phone Unavailable Primary Care Provider Unavailabl e Encounter Details Date Type Department Care Team (Late st Contact Info) Description 11/27/2022 12:05 AM EST Ancillary Procedure Radiology Library at [facility] LISA Orozco [phone] Que Sun MD [address] [place], [place] [phone] Social History Tobacco Use Types Packs/Day Years [...]
--- OUTSIDE RECORDS SUMMARY | 2024-11-08 10:23 | XMS_ITS | Encounter Summary ---
Author Organization [facility] Address [facility] [place] [address] Care Team Providers Care Record Press Operator Name Role Phone Unavailable Primary Care Provider Unavailabl e Encounter Details Date Type Department Care Team (Late st Contact Info) Description 11/26/2022 Ancillary Procedure Radiology Library at [facility] L[place]roz[place] [phone] Que Sun MD [address] [place], [place] [phone] Social History Tobacco Use Types Packs/Day Years [...] Sun MD IMG FILM LIBRARY ORD ERABLES [place], [place] documented in this encounter Visit Diagnoses Not on filedocumented in this encounter
--- OUTSIDE RECORDS SUMMARY | 2024-11-08 10:23 | XMS_ITS | Clinical Summary ---
[place] [address] Care Team Providers Care Ophthalmic Photographer Name Role Phone Que Sun MD Primary Care Provider [phone] Social History Tobacco Use Types Packs/Day Years [...] Hepatitis B vaccine (0-59 yrs) (1) 1987 Tetanus/Diphtheria/Pertussis Vaccines (1 - Tdap) 12/26 Zoster vaccine (1 of 2) 2018 Advance Directive 2023 Covid-19 Vaccine (1 - season) 2024 Influenza (Flu) vaccine (1 o f 1 - Influenza standard series) 07/24/2024 Care Teams Ophthalmic Photographer Relationship Specialty Start Date End Date Que Sun MD [address] [place] [address] PCP - General Family Medicine 12/11/22
--- OUTSIDE RECORDS SUMMARY | 2024-11-08 10:23 | XMS_ITS | Clinical Summary ---
Author Organization [facility] Address [address] [place] [address] Care Team Providers Care Wildlife Policy Professional Name Role Phone Que Sun MD Primary Care Provider [phone] Medications No known medications Encounters Date Type Department Care Team Description 09/22/2024 8:00 EDT Office Visit [facility] Neurology - [place] [address] [place], [place] [phone] Naveen Betts MD FSH (facioscapulohumeral muscular dystrophy) ([facility]) (Primary Dx); Bilateral carpal tunnel syndrome; Ulnar [...] - 19+ 3-dose series) 12/26 COVID-19 Vaccine (2023- season) 2024 Insurance [employer] Care Teams Wildlife Policy Professional Relationship Specialty Start Date End Date Que Sun MD [address] [place] [address] PCP - General Emergency Medicine 06/02/24
--- OUTSIDE RECORDS SUMMARY | 2024-11-08 10:24 | XMS_ITS | Encounter Summary ---
Author Organization [facility] Address [address] [place] [address] Care Team Providers Care Trial Consultant Name Role Phone Unavailable Primary Care Provider Unavailabl e Reason for Referral * (Routine/Next Available) - Receiving Office to Obtain Authorization Specialty Diagnoses / Procedures Referred By Contac t Referred To Contact Procedures MR OUTSIDE IMAGES CERVICAL SPINE Imaging, External Referral ID Status Reason Start Date Expiration Date Visits Requested Visits Authorized [id number] Receiving Office to Obtain Authorization 04/20/2024 1 1 Reason for Visit * (Routine/Next Available) - Receiving Office to Obtain Authorization Specialty Diagnoses / Procedures Referred By Contac t Referred To Contact Procedures MR OUTSIDE IMAGES CERVICAL SPINE Imaging, External Referral ID Status Reason Start Date Expiration Date Visits Requested Visits Authorized [id number] Receiving Office to Obtain Authorization 04/20/2024 1 1 Encounter Details Date Type Department Care Team (Latest Contact Info) Description 11/27/2022 0:05 EST - 11/27/2022 23:59 EST Hospital Encounter [facility] Secondary Reads [place] Discharge Disposition: Home or Self Care Social History Tobacco Use Types Packs/Day Years Used Date Smoking Tobacco: Never Assessed Sex and Gender Information Value Date Recorded Sex Assigned at Not on file Legal Sex Male 16:37 EDT Gender Identity Male 09/22/2024 7:48 EDT Sexual Orientation Not on file documented as [...] 12:15 EDT This is a non-reportable exam. us External Imaging IMG OTHER IMAGING ORDERABLES Fi nal Result documented in this encounter Visit Diagnoses Not on filedocumented in this encounter
--- OUTSIDE RECORDS SUMMARY | 2024-11-08 10:24 | XMS_ITS | Encounter Summary ---
Author Organization [facility] Address [address] [place] [address] Care Team Providers Care Laboratory Administrative Director Name Role Phone Unavailable Primary Care Provider Unavailabl e Reason for Referral * (Routine/Next Available) - Receiving Office to Obtain Authorization Specialty Diagnoses / Procedures Referred By Contac t Referred To Contact Procedures MR OUTSIDE IMAGES CHEST Imaging, External Referral ID Status Reason Start Date Expiration Date Visits Requested Visits Authorized [id number] Receiving Office to Obtain Authorization 04/20/2024 1 1 Reason for Visit * (Routine/Next Available) - Receiving Office to Obtain Authorization Specialty Diagnoses / Procedures Referred By Contac t Referred To Contact Procedures MR OUTSIDE IMAGES CHEST Imaging, External Referral ID Status Reason Start Date Expiration Date Visits Requested Visits Authorized [id number] Receiving Office to Obtain Authorization 04/20/2024 1 1 Encounter Details Date Type Department Care Team (Latest Contact Info) Description 11/27/2022 - 11/27/2022 0:04 EST Hospital Encounter [facility] Secondary Reads [place] Discharge Disposition: [...] 12:16 EDT This is a non-reportable exam. us External Imaging IMG OTHER IMAGING ORDERABLES Fi nal Result documented in this encounter Visit Diagnoses Not on filedocumented in this encounter
--- OUTSIDE RECORDS SUMMARY | 2024-11-08 10:24 | XMS_ITS | Encounter Summary ---
Author Organization [facility] Address [address] [place] [address] Care Team Providers Care Internet Media Planner Name Role Phone Que Sun MD Primary Care Provider [phone] Reason for Referral * Consult (Routine/Next Available) - Authorization Not Required Specialty Diagnoses / Procedures Referred By Emi bryant Referred To Contact Medical Biochemical Genetics Diagnoses FSH (facioscapulohumeral muscular dystrophy) ([facility]) Naveen Betts MD [address] [place] [address] Phone: tel: fax: [facility] Pediatric Genetics - [facility] [address] [place] [address] Phone: tel: fax: Referral ID Status Reason Start Date Expiration Date Visits Requested Visits Authorized [id number] Authorization Not Required Specialty Services Required 09/22/20 24 1 1 Question Answer Reason for Request: formal genetic testing for FSHD1 Reason for Visit * Reason Comments Follow-up Encounter Details Date Type Department Care Team (Late st Contact Info) Description 09/22/2024 8:00 EDT Office Visit [facility] Neurology [facility] [address] [place] [address] Naveen Betts MD [address] [place] [address] FSH (facioscapulohumeral muscular dystrophy) (HCC-CMS) (Primary Dx); [...] on file documented as of this encounter Patient Instructions * Patient Instructions* Shoshana Newton - 09/22/2024 8:00 EDT Referral to detective supervisor for formal genetic testing to confirm FSHD1 Will register you with [facility] clinic added to next available which is 08/03/25 Research coordinator will contact you regarding MOVR study enrollment documented in this encounter Progress Notes * Naveen Betts MD - 09/22/2024 0800 EDT Images from the original note were not included. Department of Neurological Sciences Neurology Clinic Follow Up Visit Note Problem List: 1. 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 Bilateral left more than right carpal tunnel syndrome. Left moderately severe right mild to moderate. 3. Bilateral ulnar neuropathies across the elbow (left 19 m/s slowing, right 9 m/s slowing). Medications: None Investigations: Epigenetic studies from [facility], consistent with FSHD type I Subjective: Patient is a 53-year-old gentleman who presents for a follow-up. Since last visit, patient has epigenetic testing from [facility], which were consistent with FS HD type I. Since last visit, patient has not noticed any changes in his neurological deficit. He continued to have bilateral right more than left shoulder girdle weakness. He also has mild difficulty with axialand hip girdle weakness. Patient is minimally symptomatic from upper extremities entrapment neuropathies. He continues to deny any trouble with swallowing, speech, pain or trouble with breathing. He denies any other health related issues. Review of Systems: A 13-system review of systems was obtained, which was negative except as mentioned in body of report. Objective: Patient was awake and alert. There was no aphasia or dysarthria. Cranial examination 2-12 are normal. Patient has evidence of atrophy of pectoralis muscles bilaterally as well as atrophy of the periscapular areas and left biceps. Bilateral right more than left scapular winging identified. Strength e xamination in the upper extremities y was significant for right FDI 4 out of 5. Bilateral triceps were 5 out of 5. Biceps right 4 out of 5 and left 3 out of 5. Right deltoid -4 left plus 4 out of 5. Abdominal weakness is suggested by positive northway sign. In the lower extremities, he has mild left more than right proximal hip girdle weakness in the range of minus 5 out of 5. Mild mottling lordotic posture was also identified Assessment and Plan: We again had a lengthy discussion about the diagnosis of facioscapulohumeral muscular dystrophy type I. My plans are as follows: 1. I am going to refer him to the detective supervisor for genetic testing confirmation. 2. Will register him with the [facility] as well as MOV study. 3. He will get PT OT evaluations from [facility]. 4. I also reviewed different clinical trials and encouraged him to participate. He is going to review them and let me know about his decision. We also discussed surgical options for scapular fixation. Patient wanted to hold off to surgical option. 5. We also discussed surgical treatment for entrapment neuropathies, patient is minimally symptomatic and wanted to hold off to surgical treatment. 6. Patient does not have any sensorineural hearing loss and will also follow-up with foundry technician to rule out any retinal disease ( Coat's syndrome). Patient ongoing care will be at [facility] Naveen Betts MD Professor of Neurological Sciences ABPN Board Certified Neurology, Neuromuscular and Clinical Neurophysiology documented in this encounter Plan of Treatment Scheduled Referrals Name Type Priority Associated Diagnoses Order Schedule AMB CONS/FOLLOW UP GENETICS Outpatient Referral Routine/Next Available FSH (facioscapulohumer al muscular dystrophy) ([facility]) Expected: 10/22/2024 (Approximate), Expires: 09/22/2025 documented as of this encounter Visit Diagnoses Diagnosis FSH (facioscapulohumeral muscular dystrophy) ([facility])- Primary Hereditary progressive muscular dystrophy Bilateral carpal tunnel syndrome Carpal tunnel syndrome Ulnar neuropathy of both upper extremities Lesion of ulnar nerve documented in this encounter Care Teams Internet Media Planner Relationship Specialty Start Date End Date Que Sun MD [address] [facility] [address] [place] [id number] PCP - General Emergency Medicine 06/02/24 documented as of this encounter
--- OUTSIDE RECORDS SUMMARY | 2024-11-08 10:24 | XMS_ITS | Encounter Summary ---
Author Organization [facility] Address [address] [place] [address] Care Team Providers Care Line Operator Name Role Phone Que Sun MD Primary Care Provider [phone] Reason for Visit * Reason Comments New Patient Visit * Referral (Routine) - Receiving Office to Obtain Authorization Specialty Diagnoses / Procedures Referred By Emi bryant Referred To Contact Neurology Diagnoses Muscle wasting and atrophy, not elsewhere classified, left upper arm Rosalinda Sevilla MD [address] [place] [address] Phone: tel: fax: Naveen Betts MD [address] [place] [address] Phone: tel: fax: Referral ID Status Reason Start Date Expiration Date Visits Requested Visits Authorized [id number] Receiving Office to Obtain Authorization 1 1 Encounter Details Date Type Department Care Team (Late st Contact Info) Description 06/02/2024 8:00 EDT Procedure visit [facility] Neurology [facility] [address] [place] [address] Naveen Betts MD [address] [place] [address] FSH (facioscapulohumeral muscular dystrophy) (HCC-CMS) [...] and TSH were normal. Genetic testing through [facility] [employer] [facility] was negative. MRI of the right shoulder [...] history: Both parents are . Father of [place] and also stroke. Mother has stroke. Patient [...] winging. Abdominal weakness is suggested by positive [place] sign. In the lower extremities, he has mild left more than right proximal hip girdle weakness in the range of minus 5 out of 5. DTRs: 2+ and symmetric. Toes are down going to plantar stimulation. Sensation: Intact light touch, pinprick, temperature and vibration throughout. Coordination: Mbmvrm-pb-ayff and maqy-nz-bfvm are intact. Rapid alternating movements are fast [...] Visit Diagnoses Diagnosis FSH (facioscapulohumeral muscular dystrophy) ([facility])- Primary Hereditary progressive muscular dystrophy Bilateral carpal tunnel syndrome Carpal tunnel syndrome Ulnar neuropathy of both upper extremities Lesion of ulnar nerve documented in this encounter Care Teams Line Operator Relationship Specialty Start Date End Date Que Sun MD [address] [facility] [address] [place] [address] PCP - General Emergency Medicine 06/02/24 documented as of this encounter
--- OUTSIDE RECORDS SUMMARY | 2024-11-08 10:24 | XMS_ITS | Encounter Summary ---
Author Organization [facility] Address [address] [place] [address] Care Team Providers Care Diesel Fitter Mechanic Name Role Phone Unavailable Primary Care Provider Unavailabl e Reason for Referral * (Routine/Next Available) - Receiving Office to Obtain Authorization Specialty Diagnoses / Procedures Referred By Contac t Referred To Contact Procedures MR OUTSIDE IMAGES LEFT UPPER EXTREMITY Imaging, External Referral ID Status Reason Start Date Expiration Date Visits Requested Visits Authorized [id number] Receiving Office to Obtain Authorization 04/20/2024 1 1 Reason for Visit * (Routine/Next Available) - Receiving Office to Obtain Authorization Specialty Diagnoses / Procedures Referred By Contac t Referred To Contact Procedures MR OUTSIDE IMAGES LEFT UPPER EXTREMITY Imaging, External Referral ID Status Reason Start Date Expiration Date Visits Requested Visits Authorized [id number] Receiving Office to Obtain Authorization 04/20/2024 1 1 Encounter Details Date Type Department Care Team (Latest Contact Info) Description 11/26/2022 0:05 EST - 11/26/2022 23:59 EST Hospital Encounter [facility] Secondary Reads [place] Discharge Disposition: Home [...] 12:14 EDT This is a non-reportable exam. us External Imaging IMG OTHER IMAGING ORDERABLES Fi nal Result documented in this encounter Visit Diagnoses Not on filedocumented in this encounter
--- OUTSIDE RECORDS SUMMARY | 2024-11-08 10:24 | XMS_ITS | Encounter Summary ---
Author Organization [facility] Address [address] [place] [address] Care Team Providers Care Rope Making Machine Operator Name Role Phone Unavailable Primary Care Provider Unavailabl e Reason for Referral * (Routine/Next Available) - Receiving Office to Obtain Authorization Specialty Diagnoses / Procedures Referred By Davinac t Referred To Contact Procedures MR OUTSIDE IMAGES RIGHT UPPER EXTREMITY Imaging, External Referral ID Status Reason Start Date Expiration Date Visits Requested Visits Authorized [id number] Receiving Office to Obtain Authorization 04/20/2024 1 1 Reason for Visit * (Routine/Next Available) - Receiving Office to Obtain Authorization Specialty Diagnoses / Procedures Referred By Emi t Referred To Contact Procedures MR OUTSIDE IMAGES RIGHT UPPER EXTREMITY Imaging, External Referral ID Status Reason Start Date Expiration Date Visits Requested Visits Authorized [id number] Receiving Office to Obtain Authorization 04/20/2024 1 1 Encounter Details Date Type Department Care Team (Latest Contact Info) Description 11/26/2022 - 11/26/2022 0:04 EST Hospital Encounter [facility] Secondary Reads [place] Discharge Disposition: Home [...]
--- OUTSIDE RECORDS SUMMARY | 2024-11-08 10:24 | XMS_ITS | Encounter Summary ---
Author Organization [facility] Address [address] [place] [address] Care Team Providers Care Optician Apprentice Dispensing Name Role Phone Unknown, Provider Primary Care Provider Que Walker MD Primary Care Provider Encounter Details Date Type Department Care Team (Late st Contact Info) Description 08/28/2022 Lab Requisition [facility] Pathology & Laboratory Medicine - [address] [address] Outr Resulting Lab, Provider Social History Tobacco [...] Lyme Ab Negative Negative 08/29/2022 9:32 EDT [facility] Blood VENOUS BLOOD / Unknown 08/28/2022 7:55 EDT 08/28/2022 21:28 EDT us Provider Outr Resulting Lab IMMUNOLOGY AND SEROL OGY ORDERABLES Final Result [facility] [address] [place] [address] documented in this encounter Visit Diagnoses Not on filedocumented in this encounter Care Teams Optician Apprentice Dispensing Relationship Specialty Start Date End Date Unknown, Provider, PCP - General 05/19/24 06/01/24 Que Sun MD [address] [facility] [address] [place] [id number] PCP - General Emergency Medicine 06/02/24 documented as of this encounter
[2024-11-08 17:06] LABS: ALT 58 U/L (16-63); AST 30 U/L (15-37); Albumin 4.2 g/dL (3.4-5.0); Alkaline Phosphatase 58 U/L (46-116); Bilirubin, Direct 0.2 mg/dL (0.0-0.2); Bilirubin, Total 0.82 mg/dL (0.2-1.0); Total Protein 6.9 g/dL (6.4-8.2)
== END 2024-11-08 10:23 | disposition home or self-care (01) ==
LOC: NCHCN 10:22
PROVIDERS: PCP Family Medicine; Visit Provider Family Medicine
DX: E78.5 Hyperlipidemia, unspecified (principal)
CPT/HCPCS: 80076

== ENCOUNTER 2025-06-12 12:57 | Emergency (ER) | payer OTHER, SELFPAY ==
[2025-06-12] VITALS (7 sets, daily range): BP systolic 132–138; BP diastolic 74–110; PULSE 55–78; RESP 18; TEMP 36.8; O2SAT 95–98
--- NOTE | 2025-06-12 13:00 | DI.CT_ITS ---
Exam(s) CT LUMBAR SPINE RECONS CT ABDOMEN PELVIS W EXAM: CT ABDOMEN PELVIS W CLINICAL HISTORY: Fall. TECHNIQUE: Imaging Protocol: Axial computed tomography images with coronal and sagittal reformatted images were created and reviewed CONTRAST MATERIAL: Intravenous: Omnipaque 350 Contrast volume:75 ml Oral: no COMPARISON: CT CT LUMBAR SPINE RECONS from 06/12/2025 FINDINGS: ABDOMEN and PELVIS: Lung Bases: No acute findings. Elevated right diaphragm. Liver: Normal density. No suspicious mass. Cyst inferior tip. Gallbladder and biliary tract: Single small calcified gallstone. No wall thickening or pericholecystic fluid. No biliary dilation. Pancreas: Normal density. No abnormal calcifications or inflammatory process. No evidence of mass. Spleen: Normal. Kidneys: Normal size, contour and axis. No radiodense stones. No obstructive uropathy. No suspicious masses seen. Adrenal glands: No masses seen. Vasculature: Abdominal aorta non-dilated. Soft tissues: Small fat containing umbilical hernia. Bladder: No gross wall thickening. No calculi.No focal mass. Bowel: No obstruction. No bowel wall thickening. Diverticulosis without evidence of diverticulitis. Peritoneal cavity: No ascites. No focal collection. No mesenteric inflammatory response. No free air. Bones: Mild compression fracture of the superior endplate of L2. The posterior aspect of the end plate is not involved. Mild compression fracture of the superior endplate of L3. The fracture extends through the anterior aspect of the endplate. Posterior endplate is not involved. Mild degenerative disc changes at L4-5. No posterior element fractures. No evidence of pelvic fracture. Reproductive organs: Unremarkable. Lymph nodes: No pathologically enlarged lymph nodes. IMPRESSION:: Mild compression fractures of the anterior superior endplates of L2 and L3. No acute abnormality in the abdomen or pelvis. Findings were called to Dr. Yadav of the emergency department. RADIATION DOSE DELIVERED: 419.31mGy.cm Total DLP DATA REPOSITORY: All CT scans at this facility are submitted to the National Radiology Data Registry (NRDR) Dose Index Registry (DIR) with the [employer] (ACR). RADIATION OPTIMIZATION: All CT scans at this facility use at least one of these dose optimization techniques: automated exposure control; mA and/or kV adjustment per patient size (includes targeted exams where dose is matched to clinical indication); or iterative reconstruction.
--- NOTE | 2025-06-12 13:00 | DI.RAD_ITS ---
Exam(s) XR CHEST 1V IN DI DEPT EXAM: XR CHEST 1V IN DI DEPT CLINICAL HISTORY: Fall TECHNIQUE: 2D digital imaging was performed. COMPARISON: MR MR CHEST WO/W from 11/27/2022 FINDINGS: LUNGS: Lungs are clear. No pleural abnormality seen. The right diaphragm is elevated. HEART: Normal size. AORTA: Normal diameter. BONES: Unremarkable for age. Soft tissues: Unremarkable. IMPRESSION: No acute findings. DATA REPOSITORY: RADIATION DOSE DELIVERED:
--- NOTE | 2025-06-12 13:01 | ED.GENADUL_ITS ---
Discharge Plan Disposition Patient Disposition: Home Discharge Details Clinical Impression: Compression fracture of lumbosacral spine Primary Care Provider: Que Sun ED Provider: Jewel Yadav Home Meds and New Rx's Prescriptions: New oxycodone 5 mg tablet 5 mg PO Q8H PRNQty: 6 0RF Continued rosuvastatin 20 mg tablet 20 mg PO DAILY Discharge Instructions Instructions: Vertebral Compression Fracture (DC) Additional Instructions: You were seen in the emergency department for your back pain. You are found to have compression fractures of your lumbar spine. Please limit lifting to less than 10 pounds and no bending and twisting. The [facility] spine clinic will call you for follow-up. Please return to emergency department if you develop any numbness or tingling in your feet or if you take any recurrent falls. For your pain please take medications as follows: 1. Take acetaminophen (Tylenol), 1,000 mg (two 500 mg tabs) every 6 hours [2. Take ibuprofen (Advil), 400 mg every 6 hours.] Discharge Data Discharge Date/Time-TO BE ENTERED AT DEPARTURE: 06/12/25 15:39 HPI General Date/Time Provider Initiated Documentation: 06/12/25 13:01 . HPI Narrative: MDM Primary survey intact. Reassuring shock index. On secondary survey patient has pain on his lumbar spine for which he will undergo CT scan of abdomen pelvis with lumbar reconstructions. No head strike so no indication for CT head. No midline cervical spinal tenderness so we will defer CT cervical spine. No preceding dizziness no chest pain to suggest benefit from ECG. No shortness of breath to suggest PE however given fall will obtain chest x-ray. Will obtain basic labs and some type and screen. Will treat with IV acetaminophen. 3:20PM Patient found to have L2 and L3 endplate compression deformities. He remained neurologically intact. I completed upright AP and lateral x-rays. We discussed no twisting and weight restriction to lifting less than 10 pounds. I spoke with Sen Jackson from [place] at [facility]. He will help to arrange outpatient follow up. I reviewed the patient's prescription drug monitoring program. He had no opiate prescriptions. I gave him a short course of oral opiates to take in addition to acetaminophen and scheduled ibuprofen. We discussed he should return to the ED for any weakness in any neurological changes or any other conc erns. He understood his return indications. HPI This is a male with a history of a fall presenting with lumbar pain. The patient experienced a fall from a step ladder, landing on his buttocks and subsequently suffering pain in the lumbar region of his back. The pain is absent during palpation but intensifies with movement or when he attempts to bear weight. He reports no head trauma, loss of consciousness, or use of blood thinners. His neurological status remains intact. He was administered 100 mcg of fentanyl by EMS. An 18-gauge needle was inserted into his left antecubital fossa. His vital signs were stable, with a blood pressure reading of 160/100 and a heart rate in the 60s. He reports no neck pain, hip pain, difficulty breathing, oral lacerations, pre-syncope or syncope episodes, or abdominal pain. Exam General: Well-appearing in no acute distress speaking in complete sentences. Head: Normocephalic, atraumatic. Eye:[Pupils equal, round reactive to light.] Extraocular eye movements intact. No conjunctival injection. No scleral icterus. Ear, nose, mouth, throat: Grossly normal inspection. Normal voice, handling secretions normally. No septal hematoma.No hemotympanum bilaterally. Neck: Trachea midline. No midline cervical spinal tenderness. Cardiovascular: Well-perfused distal extremities. Respiratory: Nonlabored respiration.Clear lungs bilaterally. Gastrointestinal: Nondistended abdomen. Soft nontender. Back: No thoracic spinal tenderness. Midline and left paraspinal lumbar spinal tenderness. No step-offs. No deformities. Musculoskeletal: No edema. Moving all 4 extremities spontaneously. Bilateral upper and lower extremities nontender full ROM. Skin: Normal for age and race, grossly normal temperature and turgor. No acute rash. Neurologic: Alert and appropriate, no apparent acute deficits. GCS 15. Psychiatric: Mood and manner are appropriate. Grooming and personal hygiene are appropriate. Related Data Home Medications ?Medication ?Instructions ?Recorded ?Confirmed rosuvastatin 20 mg tablet 20 mg PO DAILY 10/18/2405/24 oxycodone 5 mg tablet 5 mg PO Q8H PRN #6 tabs 05/24 12/17 Previous Rx's ?Medication ?Instructions ?Recorded oxycodone 5 mg tablet 5 mg PO Q8H PRN #6 tabs 05/24 12/17 Allergies Allergy/AdvReac Type Severity Reaction Status Date / Time No Known Allergies Allergy Verified 06/12/25 13:01 General Stated Complaint: Fall/Non TraumaCriteria ACACIA: 3 Course Vital Signs Vital signs: Vital Signs Pulse 64 06/12/25 12:58 Respiratory Rate 18 06/12/25 12:58 Blood Pressure 138/110 H 06/12/25 12:58 Pulse Oximetry 98 06/12/25 12:58 Pulse 64 06/12/25 12:58 Respiratory Rate 18 06/12/25 12:58 Blood Pressure 138/110 H 06/12/25 12:58 Blood Pressure Position Sitting 06/12/25 12:58 Pulse Oximetry 98 06/12/25 12:58 Oxygen Delivery Method Room Air 06/12/25 12:58 Oxygen Flow Rate 0 06/12/25 12:58 Pain Level 3 06/12/25 12:58 PFSH All Active Problems (Updated 06/12/25 @ 15:21 by Jewel Yadav MD) Compression fracture of lumbosacral spine (Acute) Encounter for screening colonoscopy (Acute) Hypersomnia (Acute) Cubital tunnel syndrome of both upper extremities (Acute) Carpal tunnel syndrome on both sides (Acute) Atrophy of muscle of left upper arm (Acute) Shoulder joint stiffness, bilateral (Acute) Medical History Pain of both shoulder joints Muscle wasting Pt. states he lost the strength in his left bicep. Still pending diagnosis app[place] [facility] [place]23. 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
[2025-06-12 13:36] LABS: Abs Immature Grans 0.14 10^3/uL (0.0-0.06); HCT 42.2 % (40.0-50.0); HGB 14.5 g/dL (13.5-17.5); Immature Grans % 1.4 %; MCH 30.1 pg (27.0-33.0); MCHC 34.4 % (32.0-36.0); MCV 88 fL (80-95); MPV 9.7 fL (8.0-11.0); Platelet Count 180 10^3/uL (130-400); RBC 4.82 10^6/uL (4.36-5.78); RDW 12.1 % (11.8-14.1); RDW-SD 39.0 fL; WBC 10.29 10^3/uL (4.4-10.8)
[2025-06-12] MEDS: ACETAMINOPHEN 1,000 MG/100 ML BAG 400 MG IVPB (13:40)
[2025-06-12] MEDS: Normal Saline 500 ML IV (13:40)
[2025-06-12] MEDS: Omnipaque 350 MG/ML 500 ML BTL-Imaging package IJ (13:42)
[2025-06-12] MEDS: Normal Saline - Diluent 50 ML VIAL IJ (13:42)
[2025-06-12 13:55] LABS: Anion Gap 9.3 mmol/L (3-11); BUN 12 mg/dL (7-18); CO2 27.7 mmol/L (21.0-32.0); Calcium 8.9 mg/dL (8.5-10.1); Chloride 103 mmol/L (98-107); Estimated GFR 119.71 (mL/min/1.73m2); Glucose 98 mg/dL (74-106); Potassium 3.8 mmol/L (3.5-5.1); Sodium 140 mmol/L (136-145)
--- NOTE | 2025-06-12 14:15 | DI.RAD_ITS ---
Exam(s) XR LUMBAR SPINE AP, LAT EXAM: XR LUMBAR SPINE AP, LAT CLINICAL HISTORY: Compression fracture. TECHNIQUE: 2D digital imaging was performed. Five views. COMPARISON: CT CT LUMBAR SPINE RECONS from 06/12/2025 FINDINGS: BONES: There is mild depression of the anterior superior endplate of L2 and L3. A discrete fracture line is seen through the anterior endplate of L3. Endplate osteophytes. Facet hypertrophy identified L4-5 and L5-S1. DISKS: Mild narrowing of the L4-5 disc space. The remaining intervertebral disc spaces are maintained. ALIGNMENT: Lumbar spinal alignment is within normal limits. SOFT TISSUE: Normal. IMPRESSION: Mild compression fractures of the anterior superior endplates of L2 and L3. DATA REPOSITORY: RADIATION DOSE DELIVERED:
[2025-06-12] MEDS: Ketorolac 15 MG/ML VIAL IVP (14:38)
[2025-06-12] MEDS: oxyCODONE 5 MG TAB PO (14:38)
[2025-06-12] MEDS: Lidocaine 5% Patch 1 PATCH TP (14:38)
== END 2025-06-12 15:39 | disposition home or self-care (01) ==
LOC: ER 15:34
PROVIDERS: Emergency Provider Emergency Medicine; PCP Family Medicine
DX: S32.020A Wedge compression fracture of second lumbar vertebra, initial encounter for closed fracture (principal); S32.030A Wedge compression fracture of third lumbar vertebra, initial encounter for closed fracture; W11.XXXA Fall on and from ladder, initial encounter; Y93.89 Activity, other specified; Y92.89 Other specified places as the place of occurrence of the external cause
CPT/HCPCS: 36415; 80048; 86850; 86900; 86901; 96361; 96374; 96375; 99285; 71045; 72100; 74177; 80320; 85025; J0131; J1885

== ENCOUNTER 2025-07-19 12:22 | Outpatient (CLI) | payer OTHER, SELFPAY ==
--- NOTE | 2025-07-19 | DI.RAD_ITS ---
Exam(s) XR LUMBAR SPINE AP, LAT EXAM: XR LUMBAR SPINE AP, LAT CLINICAL HISTORY: L2,L3 SUPERIOR ENDPLATE FXS,HEALING,S32.020D,S32.030D. TECHNIQUE: 2D digital imaging was performed. COMPARISON: CR XR LUMBAR SPINE AP, LAT from 06/12/2025 FINDINGS: 3 views There is relatively stable appearance of the fractured superior endplates of L2 and L3 without significant further height loss when compared to 06/12/2025 and no obvious retropulsed posterior cortex fragments. There are no additional fractures at other levels evident. Moderate disc space narrowing at L4-5 again noted as well as at L1-2 and mild disc space narrowing at L5-S1 noted. No listhesis. No pars defects. Sacroiliac joints appear unremarkable. No scoliosis. IMPRESSION: Stable appearance of superior endplates fractures of L2 and L3 vertebral bodies when compared to images of 06/12/2025 DATA REPOSITORY: RADIATION DOSE DELIVERED:
== END 2025-07-19 12:42 ==
PROVIDERS: PCP Family Medicine
DX: S32.020D Wedge compression fracture of second lumbar vertebra, subsequent encounter for fracture with routine healing (principal); X58.XXXD Exposure to other specified factors, subsequent encounter
CPT/HCPCS: 72100

== ENCOUNTER 2025-08-21 20:23 | Outpatient (REF) | payer OTHER, SELFPAY ==
[2025-08-21 21:56] LABS: ALT 56 U/L (16-63); AST 25 U/L (15-37); Albumin 4.3 g/dL (3.4-5.0); Alkaline Phosphatase 64 U/L (46-116); Anion Gap 11.6 mmol/L (3-11); BUN 16 mg/dL (7-18); Bilirubin, Total 0.6 mg/dL (0.2-1.0); CO2 27.4 mmol/L (21.0-32.0); Calcium 8.7 mg/dL (8.5-10.1); Chloride 101 mmol/L (98-107); Estimated GFR 113.29 (mL/min/1.73m2); Glucose 101 mg/dL (74-106); LDL CHOLESTEROL 96 mg/dL (<100); Potassium 4.9 mmol/L (3.5-5.1); Sodium 140 mmol/L (136-145); Total Protein 7.2 g/dL (6.4-8.2)
[2025-08-21 22:08] LABS: Hemoglobin A1C 5.3 % (<5.7)
== END 2025-08-21 20:24 | disposition home or self-care (01) ==
LOC: NCHCN 20:23
PROVIDERS: PCP Family Medicine; Visit Provider Family Medicine
DX: E78.5 Hyperlipidemia, unspecified (principal); Z00.00 Encounter for general adult medical examination without abnormal findings
CPT/HCPCS: 80053; 83721; 83036